=== PATIENT | female | born 1940 | race Caucasian/White ===

== ENCOUNTER → 2016-03-05 | Outpatient (CLI) | payer OTHER ==
[2016-03-05 13:40] LABS: MEAN CORPUSCULAR HEMOGLOBIN 28.5 pg (27.0-33.0); MEAN CORPUSCULAR VOLUME 86.4 fl (80.0-96.0); WHITE BLOOD COUNT 6.1 K/mm3 (4.0-10.0)
[2016-03-05 13:44] LABS: ALBUMIN 3.4 GM/DL (3.2-5.2); ALBUMIN/GLOBULIN RATIO 1.13 (1.00-1.93); ALKALINE PHOSPHATASE 100 U/L (45-117); ALT/SGPT 19 U/L (12-78); ANION GAP 6 MEQ/L (8-16); AST/SGOT 16 U/L (15-37); BILIRUBIN,TOTAL 0.4 MG/DL (0.2-1.0); BLOOD UREA NITROGEN 18 MG/DL (7-18); CALCIUM LEVEL 9.4 MG/DL (8.8-10.2); CARBON DIOXIDE LEVEL 31 MEQ/L (21-32); CHLORIDE LEVEL 101 MEQ/L (98-107); CREATININE FOR GFR 0.82 MG/DL (0.55-1.02); GLOMERULAR FILTRATION RATE > 60.0 (>39); GLUCOSE, FASTING 126 MG/DL (83-110); MAGNESIUM LEVEL 1.5 MG/DL (1.8-2.4); POTASSIUM SERUM 3.6 MEQ/L (3.5-5.1); SODIUM LEVEL 138 MEQ/L (136-145); TOTAL PROTEIN 6.4 GM/DL (6.4-8.2); VITAMIN B12 LEVEL 426 PG/ML
== END ==
LOC: M WUC 10:06
PROVIDERS: ATTEND Nurse Practitioner Family
DX: I10 Essential (primary) hypertension (principal); K21.9 Gastro-esophageal reflux disease without esophagitis; E55.9 Vitamin D deficiency, unspecified

== ENCOUNTER → 2016-06-05 | Outpatient (CLI) | payer OTHER ==
--- NOTE | 2016-06-05 10:39 | REPMRS ---
Patient History The patient states she had a clinical breast exam in 03/10 Patient is postmenopausal. Family history of colorectal cancer in father at age 50 or over. Digital Woman Screen Mammo: June 05, 2016 - Exam #: [id number] Bilateral CC and MLO view(s) were taken. Technologist: Jazmyne Dorsey, Technologist Prior study comparison: November 15, 2014, digital woman screen mammo performed at [facility] to [facility]. September 21, 2011, digital woman screen mammo performed at [facility] to [facility]. FINDINGS: There are scattered fibroglandular densities. There has been no change in the appearance of the mammogram from the prior studies. There is a mild amount of residual fibroglandular tissue which is fairly symmetric. There is no interval development of dominant mass, architectural distortion, or clustered microcalcification suggestive of malignancy. ASSESSMENT: BI-RADS/ACR category 1 mammogram. Negative. Recommendation Routine screening mammogram in 1 year (for women over age 40). This mammogram was interpreted with the aid of an FDA-approved computer-aided dectection system. Electronically Signed By: Nahum Wilkinson MD 06/05/16 1846
== END ==
LOC: M WHC 08:57
PROVIDERS: ATTEND Nurse Practitioner Family
DX: Z12.31 Encounter for screening mammogram for malignant neoplasm of breast (principal)

== ENCOUNTER → 2016-09-04 | Outpatient (CLI) | payer OTHER ==
[2016-09-04 09:55] LABS: ALBUMIN 3.3 GM/DL (3.2-5.2); ALKALINE PHOSPHATASE 89 U/L (45-117); ALT/SGPT 21 U/L (12-78); ANION GAP 8 MEQ/L (8-16); AST/SGOT 20 U/L (15-37); BILIRUBIN,TOTAL 0.4 MG/DL (0.2-1.0); BLOOD UREA NITROGEN 17 MG/DL (7-18); CALCIUM LEVEL 9.2 MG/DL (8.8-10.2); CARBON DIOXIDE LEVEL 29 MEQ/L (21-32); CHLORIDE LEVEL 100 MEQ/L (98-107); CHOLESTEROL LEVEL 173 MG/DL (<200); CREATININE FOR GFR 0.81 MG/DL (0.55-1.02); GLOMERULAR FILTRATION RATE > 60.0 (>39); GLUCOSE, FASTING 106 MG/DL (83-110); MAGNESIUM LEVEL 1.7 MG/DL (1.8-2.4); POTASSIUM SERUM 3.8 MEQ/L (3.5-5.1); SODIUM LEVEL 137 MEQ/L (136-145); TOTAL PROTEIN 6.6 GM/DL (6.4-8.2); TRIGLYCERIDES LEVEL 156 MG/DL (<150)
== END ==
LOC: M WUC 08:14
PROVIDERS: ATTEND Nurse Practitioner Family
DX: I10 Essential (primary) hypertension (principal); E83.42 Hypomagnesemia

== ENCOUNTER → 2017-03-16 | Outpatient (CLI) | payer OTHER | LOC: M SMT 11:47 | DX: R05 Cough (principal); J84.9 Interstitial pulmonary disease, unspecified; I51.7 Cardiomegaly; E55.9 Vitamin D deficiency, unspecified | CPT/HCPCS: 71046; 82746 ==

== ENCOUNTER → 2017-03-16 | Outpatient (REF) | payer OTHER ==
[2017-03-16 14:19] LABS: BASO % 0.3 % (0.0-1.0); EOS # 0.4 10^3/uL (0.0-0.50); EOS % 5.1 % (0.0-3.0); HEMATOCRIT 42.9 % (36.0-47.0); HEMOGLOBIN 13.9 g/dl (12.0-16.0); IMMATURE GRANULOCYTE % 0.3 % (0-0); LYMPH # 1.1 10^3/uL (1.5-4.5); LYMPH % 14.4 % (24.0-44.0); MEAN CORPUSCULAR HEMOGLOBIN 28.1 pg (27.0-33.0); MEAN CORPUSCULAR HGB CONC 32.4 g/dl (32.0-36.5); MEAN CORPUSCULAR VOLUME 86.8 fl (80.0-96.0); MONO # 0.5 10^3/uL (0.0-0.8); MONO % 6.6 % (0.0-5.0); NEUTROPHILS # 5.8 10^3/uL (1.8-7.7); NEUTROPHILS % 73.3 % (36.0-66.0); PLATELET COUNT, AUTOMATED 188 10^3/uL (150-450); RED BLOOD COUNT 4.94 10^6/uL (4.00-5.40); RED CELL DISTRIBUTION WIDTH 14.3 % (11.5-14.5); WHITE BLOOD COUNT 7.9 10^3/uL (4.0-10.0)
[2017-03-16 14:27] LABS: ANION GAP 7 MEQ/L (8-16); BLOOD UREA NITROGEN 15 MG/DL (7-18); CALCIUM LEVEL 9.4 MG/DL (8.8-10.2); CARBON DIOXIDE LEVEL 30 MEQ/L (21-32); CHLORIDE LEVEL 100 MEQ/L (98-107); CREATININE FOR GFR 0.78 MG/DL (0.55-1.02); GLOMERULAR FILTRATION RATE > 60.0 (>39); GLUCOSE, FASTING 89 MG/DL (70-100); MAGNESIUM LEVEL 1.5 MG/DL (1.8-2.4); POTASSIUM SERUM 4.6 MEQ/L (3.5-5.1); SODIUM LEVEL 137 MEQ/L (136-145)
[2017-03-16 14:33] LABS: TOTAL 25(OH) VITAMIN D 58.8 NG/ML (30.0-100.0)
[2017-03-16 14:34] LABS: FOLATE > 24.0 NG/ML; VITAMIN B12 LEVEL 1229 PG/ML
== END ==
LOC: M SFHCPLAZ 11:12
DX: J01.01 Acute recurrent maxillary sinusitis (principal); I10 Essential (primary) hypertension; E55.9 Vitamin D deficiency, unspecified; E53.8 Deficiency of other specified B group vitamins
CPT/HCPCS: 82746

== ENCOUNTER → 2017-06-07 | Outpatient (CLI) | payer OTHER ==
[2017-06-07 17:57] LABS: BASO % 0.4 % (0.0-1.0); EOS # 0.4 10^3/uL (0.0-0.50); EOS % 5.2 % (0.0-3.0); HEMATOCRIT 44.4 % (36.0-47.0); HEMOGLOBIN 14.3 g/dl (12.0-15.5); IMMATURE GRANULOCYTE % 0.4 % (0-3.0); LYMPH # 0.9 10^3/uL (1.5-4.5); LYMPH % 11.3 % (24.0-44.0); MEAN CORPUSCULAR HEMOGLOBIN 28.6 pg (27.0-33.0); MEAN CORPUSCULAR HGB CONC 32.2 g/dl (32.0-36.5); MEAN CORPUSCULAR VOLUME 88.8 fl (80.0-96.0); MONO # 0.5 10^3/uL (0.0-0.8); NEUTROPHILS # 6.4 10^3/uL (1.8-7.7); NEUTROPHILS % 76.7 % (36.0-66.0); PLATELET COUNT, AUTOMATED 241 10^3/uL (150-450); RED CELL DISTRIBUTION WIDTH 14.3 % (11.5-14.5); WHITE BLOOD COUNT 8.3 10^3/uL (4.0-10.0)
[2017-06-07 18:25] LABS: ALBUMIN 3.5 GM/DL (3.2-5.2); ALBUMIN/GLOBULIN RATIO 0.81 (1.00-1.93); ALKALINE PHOSPHATASE 82 U/L (45-117); ALT/SGPT 18 U/L (12-78); AST/SGOT 27 U/L (7-37); BILIRUBIN,DIRECT 0.1 MG/DL (0.0-0.2); BILIRUBIN,TOTAL 0.4 MG/DL (0.2-1.0); CALCIUM LEVEL 9.8 MG/DL (8.8-10.2); GLOMERULAR FILTRATION RATE > 60.0 (>39); TOTAL 25(OH) VITAMIN D 59.8 NG/ML (30.0-100.0); TOTAL PROTEIN 7.8 GM/DL (6.4-8.2)
[2017-06-07 18:31] LABS: ERYTHROCYTE SEDIMENTATION RATE 26 mm/hr (0-30)
== END ==
LOC: M SMT 10:53
DX: J84.10 Pulmonary fibrosis, unspecified (principal)
CPT/HCPCS: 82310

== ENCOUNTER → 2017-09-07 | Outpatient (CLI) | payer OTHER ==
[2017-09-07 13:19] LABS: HEMATOCRIT 37.6 % (36.0-47.0); HEMOGLOBIN 12.3 g/dl (12.0-15.5); MEAN CORPUSCULAR HEMOGLOBIN 29.5 pg (27.0-33.0); MEAN CORPUSCULAR HGB CONC 32.7 g/dl (32.0-36.5); MEAN CORPUSCULAR VOLUME 90.2 fl (80.0-96.0); PLATELET COUNT, AUTOMATED 190 10^3/uL (150-450); RED BLOOD COUNT 4.17 10^6/uL (4.00-5.40); WHITE BLOOD COUNT 7.9 10^3/uL (4.0-10.0)
[2017-09-07 13:36] LABS: ALBUMIN 2.9 GM/DL (3.2-5.2); ALBUMIN/GLOBULIN RATIO 0.78 (1.00-1.93); ALKALINE PHOSPHATASE 63 U/L (45-117); ALT/SGPT 22 U/L (12-78); ANION GAP 6 MEQ/L (8-16); AST/SGOT 21 U/L (7-37); BILIRUBIN,TOTAL 0.4 MG/DL (0.2-1.0); BLOOD UREA NITROGEN 17 MG/DL (7-18); CALCIUM LEVEL 9.3 MG/DL (8.8-10.2); CARBON DIOXIDE LEVEL 35 MEQ/L (21-32); CHLORIDE LEVEL 99 MEQ/L (98-107); CHOLESTEROL LEVEL 155 MG/DL (<200); CHOLESTEROL RISK RATIO 3.297 (<5); CREATININE FOR GFR 0.67 MG/DL (0.55-1.30); GLOMERULAR FILTRATION RATE > 60.0 (>39); GLUCOSE, FASTING 100 MG/DL (70-100); HDL CHOLESTEROL 47 MG/DL (>40); LDL CHOLESTEROL 79.2 MG/DL (<100); MAGNESIUM LEVEL 1.6 MG/DL (1.8-2.4); NON-HDL-C 108 MG/DL; POTASSIUM SERUM 3.9 MEQ/L (3.5-5.1); SODIUM LEVEL 140 MEQ/L (136-145); TOTAL PROTEIN 6.6 GM/DL (6.4-8.2); TRIGLYCERIDES LEVEL 144 MG/DL (<150)
[2017-09-07 13:57] LABS: FOLATE 20.6 NG/ML; TOTAL 25(OH) VITAMIN D 50.9 NG/ML (30.0-100.0); VITAMIN B12 LEVEL 1354 PG/ML
== END ==
LOC: M WUC 09:31
DX: J84.10 Pulmonary fibrosis, unspecified (principal); I10 Essential (primary) hypertension; E83.42 Hypomagnesemia; E55.9 Vitamin D deficiency, unspecified; E53.8 Deficiency of other specified B group vitamins
CPT/HCPCS: 82746

== ENCOUNTER → 2017-09-14 | Outpatient (REF) | payer OTHER | LOC: M SFHCPLAZ 17:00 | DX: R35.0 Frequency of micturition (principal) | CPT/HCPCS: 87086 ==

== ENCOUNTER → 2017-10-08 | Outpatient (REF) | payer OTHER ==
[2017-10-08 14:13] LABS: BASO % 0.2 % (0.0-1.0); EOS # 0.1 10^3/uL (0.0-0.50); EOS % 0.6 % (0.0-3.0); HEMATOCRIT 38.2 % (36.0-47.0); HEMOGLOBIN 12.9 g/dl (12.0-15.5); IMMATURE GRANULOCYTE % 0.6 % (0-3.0); LYMPH # 0.7 10^3/uL (1.5-4.5); MEAN CORPUSCULAR HEMOGLOBIN 29.9 pg (27.0-33.0); MEAN CORPUSCULAR HGB CONC 33.8 g/dl (32.0-36.5); MEAN CORPUSCULAR VOLUME 88.6 fl (80.0-96.0); MONO # 0.3 10^3/uL (0.0-0.8); MONO % 2.8 % (0.0-5.0); NEUTROPHILS # 10.4 10^3/uL (1.8-7.7); NEUTROPHILS % 89.8 % (36.0-66.0); PLATELET COUNT, AUTOMATED 203 10^3/uL (150-450); RED BLOOD COUNT 4.31 10^6/uL (4.00-5.40); RED CELL DISTRIBUTION WIDTH 13.6 % (11.5-14.5); WHITE BLOOD COUNT 11.6 10^3/uL (4.0-10.0)
[2017-10-08 14:19] LABS: ANION GAP 6 MEQ/L (8-16); BLOOD UREA NITROGEN 17 MG/DL (7-18); CARBON DIOXIDE LEVEL 32 MEQ/L (21-32); CHLORIDE LEVEL 96 MEQ/L (98-107); CREATININE FOR GFR 0.97 MG/DL (0.55-1.30); GLOMERULAR FILTRATION RATE 59.4 (>39); GLUCOSE, FASTING 113 MG/DL (70-100); POTASSIUM SERUM 4.4 MEQ/L (3.5-5.1); SODIUM LEVEL 134 MEQ/L (136-145)
== END ==
LOC: M SFHCPLAZ 12:03
DX: R19.7 Diarrhea, unspecified (principal); K62.5 Hemorrhage of anus and rectum
CPT/HCPCS: 80048

== ENCOUNTER → 2018-01-26 | Outpatient (REF) | payer OTHER ==
[2018-01-26 12:38] LABS: HEMOGLOBIN 12.9 g/dl (12.0-15.5); MEAN CORPUSCULAR HGB CONC 33.1 g/dl (32.0-36.5); MEAN CORPUSCULAR VOLUME 87.6 fl (80.0-96.0); PLATELET COUNT, AUTOMATED 212 10^3/uL (150-450); RED BLOOD COUNT 4.45 10^6/uL (4.00-5.40); RED CELL DISTRIBUTION WIDTH 14.3 % (11.5-14.5); WHITE BLOOD COUNT 11.8 10^3/uL (4.0-10.0)
[2018-01-26 13:07] LABS: ESTIMATED AVERAGE GLUCOSE 123 MG/DL (60-110); HEMOGLOBIN A1c 5.9 %
[2018-01-26 13:09] LABS: ALBUMIN 2.8 GM/DL (3.2-5.2); ALKALINE PHOSPHATASE 65 U/L (45-117); ALT/SGPT 41 U/L (12-78); ANION GAP 7 MEQ/L (8-16); AST/SGOT 25 U/L (7-37); BILIRUBIN,TOTAL 0.4 MG/DL (0.2-1.0); BLOOD UREA NITROGEN 18 MG/DL (7-18); CALCIUM LEVEL 9.7 MG/DL (8.8-10.2); CARBON DIOXIDE LEVEL 35 MEQ/L (21-32); CHLORIDE LEVEL 97 MEQ/L (98-107); FREE T4 1.08 NG/DL (0.76-1.46); GLOMERULAR FILTRATION RATE > 60.0 (>39); GLUCOSE, FASTING 143 MG/DL (70-100); POTASSIUM SERUM 3.5 MEQ/L (3.5-5.1); SODIUM LEVEL 139 MEQ/L (136-145); TOTAL 25(OH) VITAMIN D 68.5 NG/ML (30.0-100.0); TOTAL PROTEIN 6.3 GM/DL (6.4-8.2)
== END ==
LOC: M SFHCPLAZ 11:47
DX: R53.83 Other fatigue (principal); I10 Essential (primary) hypertension; R35.0 Frequency of micturition; E55.9 Vitamin D deficiency, unspecified; R63.4 Abnormal weight loss
CPT/HCPCS: 84443

== ENCOUNTER 2018-02-03 10:54 | Day surgery (SDC) | payer OTHER ==
[~2018-02-03] VITALS: Ht 157.5 cm; Wt 46.7 kg
[~2018-02-03 10:54] MED LIST: ALBU83IN; AMLO5TAB4 PO; ANTA550C PO; ASPI1TAB PO; AZEL1SPR3; CALC1TAB26 PO; CLON0.2T PO; COZA100T2 PO; INDA25TAB PO; MAGN64TASA PO; META0.52 PO; METO100T5; MULT1TAB10 PO; NS 1,000 ML IV ONE; OMEP20CA3 PO; POTA1TAB14 PO; PRED5TA PO; SPIR-10 PO; SUCR1SUS PO; VITA100067 PO; VITA100072 PO
[2018-02-03] MEDS ORDERED: ALBUTEROL SULFATE 2.5 MG/0.5 ML INH NEB SOLN As Ordered ONE (11:32)
[2018-02-03] MEDS ORDERED: ALBUTEROL SULFATE 2.5 MG/0.5 ML INH NEB SOLN INH ONE (11:45)
--- NOTE | 2018-02-03 12:16 | ROOR ---
Patient Name: Amy Brown Procedure Date: 02/03/2018 12:02 PM Date of : 1940 Age: 77 Room: [facility] Gender: Female Note Status: Finalized Procedure: Upper GI endoscopy Indications: Weight loss Providers: Edgard RUBALCAVA MD Referring MD: Tawana Sanchez NP Requesting Provider: Medicines: Monitored Anesthesia Care Complications: No immediate complications. Procedure: Pre-Anesthesia Assessment: - The heart rate, respiratory rate, oxygen saturations, blood pressure, adequacy of pulmonary ventilation, and response to care were monitored throughout the procedure. The Endoscope was introduced through the mouth, and advanced to the second part of duodenum. The upper GI endoscopy was accomplished without difficulty. The patient tolerated the procedure well. Findings: The Z-line was variable and was found 30 cm from the incisors. The examined esophagus was normal. A medium-sized hiatal hernia was present. The entire examined stomach was normal. The examined duodenum was normal. Impression: - Normal esophagus. Z-line variable, 30 cm from the incisors. - Normal stomach with medium-sized hiatal hernia. - Normal examined duodenum. - No specimens collected. Recommendation: - Observe patient's clinical course. - Continue present medications. - Perform a colonoscopy today. Edgard Rubalcava MD Edgard RUBALCAVA MD 02/03/2018 12:15:43 PM This report has been signed electronically. Number of Addenda: 0 Note Initiated On: 02/03/2018 12:02 PM Estimated Blood Loss: Estimated blood loss: none.
--- NOTE | 2018-02-03 12:30 | ROOR ---
Patient Name: Amy Brown Procedure Date: 02/03/2018 12:03 PM Date of : 1940 Age: 77 Room: [facility] Gender: Female Note Status: Finalized Procedure: Colonoscopy Indications: Change in bowel habits, Weight loss Providers: Edgard RUBALCAVA MD Referring MD: Tawana Sanchez NP Requesting Provider: Medicines: Monitored Anesthesia Care Complications: No immediate complications. Procedure: Pre-Anesthesia Assessment: - The heart rate, respiratory rate, oxygen saturations, blood pressure, adequacy of pulmonary ventilation, and response to care were monitored throughout the procedure. The Colonoscope was introduced through the anus and advanced to the terminal ileum, with identification of the appendiceal orifice and IC valve. The colonoscopy was performed without difficulty. The patient tolerated the procedure well. The quality of the bowel preparation was good. Findings: The perianal and digital rectal examinations were normal. The terminal ileum appeared normal. Mild to moderate sigmoid diverticulosis and small internal hemorrhoids. The entire examined colon appeared normal on direct and retroflexion views. Retroflexion in the right colon was performed. Impression: - Mild sigmoid diverticulosis and small internal hemorrhoids. - The entire colon is otherwise normal on direct and retroflexion views. - The examined portion of the ileum was normal. - No specimens collected. Recommendation: - Continue present medications. - Use fiber, for example Citrucel, Fibercon, Konsyl or Metamucil. Edgard Rubalcava MD Edgard RUBALCAVA MD 02/03/2018 12:30:38 PM This report has been signed electronically. Number of Addenda: 0 Note Initiated On: 02/03/2018 12:03 PM Estimated Blood Loss: Estimated blood loss: none.
[2018-02-03 13:05] VITALS: BP 131/52
== END 2018-02-03 13:09 | disposition home or self-care (01) ==
LOC: M OPP 10:54
PROVIDERS: ATTEND Internal Medicine Gastroenterology
DX: R19.4 Change in bowel habit (principal); R63.4 Abnormal weight loss; K57.30 Diverticulosis of large intestine without perforation or abscess without bleeding; K64.8 Other hemorrhoids; K22.8 Other specified diseases of esophagus; K44.9 Diaphragmatic hernia without obstruction or gangrene

== ENCOUNTER → 2018-05-19 | Outpatient (CLI) | payer MEDICARE ==
[~2018-05-19] MED LIST changes: -AMLO5TAB4 PO; +AMLO5TAB6 PO; -NS 1,000 ML IV ONE
--- NOTE | 2018-05-19 15:10 | REP ---
Clinical: Bilateral lower extremity edema . Technique: Wilkinson scale and color Doppler evaluation using linear high frequency transducer. Findings: Ultrasound examination of the right and left lower extremity deep venous structures from the common femoral vein to the popliteal vein demonstrates normal compressibility flow and wave patterns in response to respiration and augmentation. There is no evidence for deep venous thrombosis. Impression: No evidence for deep venous thrombosis. Electronically Signed by Angus Ga MD 05/19/2018 03:02 P
== END ==
LOC: M RAD 14:32
PROVIDERS: ATTEND Nurse Practitioner Family
DX: R60.0 Localized edema (principal)

== ENCOUNTER 2018-08-20 08:27 | Inpatient (IN) | payer MEDICARE ==
[~2018-08-20] VITALS: Ht 157.5 cm; Wt 47.0 kg
[~2018-08-20 08:27] MED LIST changes: -ALBU83IN; +ALBU83IN INH; -ASPI1TAB PO; +ASPI81TA26 PO; -METO100T5; +METO100T5 PO; +VITA100018 PO; -VITA100072 PO
[2018-08-20 09:22] LABS: BASO % 0.2 % (0.0-1.0); EOS # 0.2 10^3/uL (0.0-0.50); EOS % 2.1 % (0.0-3.0); HEMATOCRIT 40.6 % (36.0-47.0); HEMOGLOBIN 13.1 g/dl (12.0-15.5); LYMPH # 1.7 10^3/uL (1.5-4.5); LYMPH % 17.2 % (24.0-44.0); MEAN CORPUSCULAR HEMOGLOBIN 29.9 pg (27.0-33.0); MEAN CORPUSCULAR HGB CONC 32.3 g/dl (32.0-36.5); MEAN CORPUSCULAR VOLUME 92.7 fl (80.0-96.0); MONO # 0.7 10^3/uL (0.0-0.8); MONO % 7.1 % (0.0-5.0); NEUTROPHILS # 7.2 10^3/uL (1.8-7.7); NEUTROPHILS % 73.1 % (36.0-66.0); PLATELET COUNT, AUTOMATED 199 10^3/uL (150-450); RED BLOOD COUNT 4.38 10^6/uL (4.00-5.40); WHITE BLOOD COUNT 9.9 10^3/uL (4.0-10.0)
[2018-08-20 09:33] LABS: INR 0.92; PROTHROMBIN TIME 12.1 SECONDS (11.8-14.0)
[2018-08-20 09:55] LABS: BLOOD UREA NITROGEN 15 MG/DL (7-18); CALCIUM LEVEL 9.3 MG/DL (8.8-10.2); CARBON DIOXIDE LEVEL 39 MEQ/L (21-32); CHLORIDE LEVEL 91 MEQ/L (98-107); CREATININE FOR GFR 0.41 MG/DL (0.55-1.30); GLOMERULAR FILTRATION RATE > 60.0 (>39); GLUCOSE, FASTING 121 MG/DL (70-100); POTASSIUM SERUM 3.4 MEQ/L (3.5-5.1); SODIUM LEVEL 137 MEQ/L (136-145)
[2018-08-20 10:00] LABS: ALT/SGPT 14 U/L (12-78); BILIRUBIN,DIRECT < 0.1 MG/DL (0.0-0.2); BILIRUBIN,TOTAL 0.4 MG/DL (0.2-1.0); CK-MB VALUE MASS 1.4 NG/ML (<3.6); CPK CREATINE PHOSPHOKINASE 17 U/L (26-192); MB/CK RELATIVE INDEX 8.24 (< OR =4); NT-PRO BNP 285 PG/ML (<450); TOTAL PROTEIN 7.2 GM/DL (6.4-8.2); TROPONIN I 0.02 NG/ML (< 0.10)
[2018-08-20] MEDS ORDERED: ISOVUE-370 76% 100ML VIAL (Q9967) As Ordered ONE (10:36)
--- NOTE | 2018-08-20 11:24 | ECGEPIP ---
[facility] - ED Test Date: 2018-08-20 Pat Name: CHRISSY BUCKNER Department: Room: - Gender: Female [employer] Administrator: : 1940 Requested By: Cornelia Agudelo Order Number: [id number] Reading MD: Cornelia Agudelo Measurements Intervals [place] Rate: 103 P: 51 MS: 122 QRS: QRSD: 98 T: 26 QT: 311 QTc: 408 Interpretive Statements SINUS TACHYCARDIA WITH OCCASIONAL SUPRAVENTRICULAR PREMATURE COMPLEXES MODERATE ST DEPRESSION No prior Electronically Signed on 08-20-2018 11:23:59 EDT by Cornelia Agudelo
[2018-08-20 11:37] VITALS: O2SAT 89
[2018-08-20] MEDS ORDERED: POTASSIUM CHLORIDE 10 MEQ SR TABLET PO ONE (12:00)
[2018-08-20] MEDS ORDERED: VITAD1000T PO (12:51)
[2018-08-20] MEDS ORDERED: MAGN64TASA PO ×2 (12:51)
[2018-08-20] MEDS ORDERED: VENTAER INH (12:51)
[2018-08-20] MEDS ORDERED: SUCR1TAB56 PO (12:51)
[2018-08-20] MEDS ORDERED: MOME50SP (12:51)
[2018-08-20] MEDS ORDERED: VITMTA PO (12:51)
[2018-08-20] MEDS ORDERED: ALBUTEROL 90 MCG/ACT 8GM HFA INHALER INH PRN (13:00)
[2018-08-20] MEDS ORDERED: FLUTICASONE PROP 0.05% NASAL SPRAY 16 GM (FLONASE) PRN (13:00)
[2018-08-20] MEDS ORDERED: FUROSEMIDE 20 MG/2 ML VIAL (J1940) IV ONE (13:00)
[2018-08-20] MEDS ORDERED: LEVALBUTEROL 1.25 MG/0.5 ML CONCENTRATE NEB INH PRN (13:15)
[2018-08-20] MEDS ORDERED: POTASSIUM CHLORIDE 10% LIQ 20 MEQ/15 ML UDC PO ONE (13:15)
[2018-08-20] MEDS ORDERED: METOPROLOL TART 25 MG TABLET PO ONE (13:15)
[2018-08-20 13:35] VITALS: BP 120/58
[2018-08-20] MEDS: SPIRONOLACTONE 12.5MG PER 1/2 TABLET PO SCH (14:24)
[2018-08-20] MEDS: CYANOCOBALAMIN 500 MCG TAB PO SCH (14:24)
[2018-08-20] MEDS: LOSARTAN 50 MG TAB PO SCH (14:24)
[2018-08-20] MEDS: predniSONE 20 MG TAB PO SCH (14:24)
[2018-08-20] MEDS: METOPROLOL TARTRATE 100 MG TAB PO SCH ×2 (14:25→21:11)
[2018-08-20] MEDS: ASPIRIN 81 MG ENTERIC TAB PO SCH (14:25)
[2018-08-20] MEDS ORDERED: SLF 3 ML SYR IV PRN (14:30)
--- NOTE | 2018-08-20 15:02 | REP ---
Clinical: Shortness of breath. Technique: Axial contrast enhanced images from the thoracic inlet to the upper abdomen using pulmonary embolus technique with 100 ml Isovue 370 intravenous contrast material. Multiplanar re-formations obtained. Comparison: 05/26/2017. Findings: Satisfactory enhancement of the pulmonary vasculature is achieved and no filling defects are identified to suggest pulmonary embolus. Diffuse advanced pulmonary fibrosis with scattered scarring and interstitial changes as well as scattered ground-glass mosaic pattern suggesting elements of air trapping is essentially unchanged compared to prior examination. No acute focal consolidation. No effusion. No pneumothorax. Mediastinal and hilar adenopathy remains stable/chronic. Atherosclerotic changes to the thoracic aorta and coronary arteries noted without aortic aneurysm or dissection. No cardiomegaly or pericardial effusion. Surrounding musculoskeletal structures demonstrate age-related degenerative changes. Limited upper abdomen demonstrates normal bilateral adrenal glands. Impression: 1. No evidence for pulmonary embolus. Thoracic aorta without aneurysm or dissection. 2. Advanced diffuse fibrosis and chronic changes similar to 05/26/2017. No consolidation or effusion appreciated. Electronically Signed by Angus Ga MD 08/20/2018 11:04 A
--- NOTE | 2018-08-20 15:02 | REP ---
Clinical: Cough and dyspnea. Comparison: 03/16/2017. Findings: Mediastinum and cardiac silhouette are within normal limits. Lung londono demonstrate diffuse chronic fibrosis. Subtle superimposed right basilar atelectasis/infiltrate and trace pleural reaction cannot be excluded. No pneumothorax. Skeletal structures stable. Impression: Diffuse fibrosis. Subtle superimposed right basilar infiltrate/atelectasis is suggested. Electronically Signed by Angus Ga MD 08/20/2018 09:21 A
--- NOTE | 2018-08-20 15:03 | HPE ---
DATE OF ADMISSION: 08/20/2018 CHIEF COMPLAINT: Shortness of breath. HISTORY OF PRESENT ILLNESS: This is a 78-year-old female, past medical history significant for chronic pulmonary fibrosis, hypertension, thrombocytopenia, hiatal hernia, reflux, hyperlipidemia, carotid artery stenosis, more than 90% on the right, status post carotid endarterectomy in 2011, allergic rhinitis, prediabetic, ejection fraction 60%, osteopenia, ex-smoker, diverticulitis, lumbar degenerative joint disease, vitamin B12 deficiency chronically on home oxygen at 3 liters and steroid dependent at 7.5 mg of prednisone daily presents to the emergency room with 2 day history of worsening shortness of breath, which she feels was exacerbated by pulmonary rehabilitation that she has had this past week. Patient has been in her usual state of health and usually on 3 liters of oxygen. This past week physical therapy had seen her at home three times this week. Asked her to do exercises including lifting her legs while she is in her chair and standing at her kitchen counter sink, but with increasing shortness of breath. According to the patient, often times hot weather also bothers her. She has not used any of her nebulizer inhalers more than prescribed. Had taken no other medications. She denies any fever or cough and states that she usually can ambulate at home about 10 to 15 feet without much difficulty. In the ER, she was found to desaturate to 80% on 3 liters of oxygen with ambulation. She was placed on 6 liters and still has saturations of 80%. CT chest was performed and according to Dr. Amaya, did not show any pulmonary embolism. There is chronic fibrosis as on previous CTs. The patient has advanced pulmonary fibrosis with reticulonodular and ground-glass opacity, bilateral hilar mediastinal lymphadenopathy as well. She is usually followed by Dr. Arthur Maynard, grade school teacher and had recently seen her about 4 to 5 months ago and was told that there would be no changes in any of her medications. Patient otherwise denies any chest pain, pressure, tightness, palpitations, lightheadedness or near-syncopal episode at home. She has not traveled outside the city and has not had any other sicks contacts. She otherwise denies any headache, changes in vision, rhinorrhea, sore throat, nausea, vomiting, abdominal pain, diarrhea or constipation. She has chronic oxygen use at 3 liters usually, now with dyspnea on exertion. No paroxysmal nocturnal dyspnea (PND), orthopnea. Patient has not had any weight gain, weight loss. No changes in appetite. No upper or lower extremity joint or muscle pain. Patient has had increasing weakness the past few days due to shortness of breath. Hospitalist was called to admit for progressive chronic fibrosis to rule out cor pulmonale or right-sided heart failure as well as to treat for possible pulmonary fibrosis exacerbation. Per Dr. Sagastume, grade school teacher show operations supervisor, patient may benefit from low dose trial of Lasix as well as prednisone 40 mg, not for COPD exacerbation, but for pulmonary fibrosis exacerbation. Patient will be admitted as an inpatient for two midnights. PAST MEDICAL HISTORY: Chronic hypoxic respiratory failure on 3 liters of oxygen. Advanced pulmonary fibrosis. Follows with Dr. Arthur Maynard, grade school teacher as outpatient. 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 Hypertension. Gastroesophageal reflux disease. Carotid artery stenosis, status post right carotid endarterectomy. Hypertension. Negative stress test on 06/2011. Thrombocytopenia. Hiatal hernia. Upper GI 08/[address] Rubalcava. Hyperlipidemia. Allergic rhinitis. Impaired fasting glucose, pre-diabetic. Echo 03/2007, ejection fraction (EF) of 60%. Normal left ventricular systolic function. Mild aortic valve sclerosis. Osteopenia. Ex-tobacco use. Quit 25 years ago. Diverticulosis per colonoscopy. Lumbar degenerative disc disease. Borderline vitamin B12 deficient. ALLERGIES: ACTONEL causing GI upset. DYNACIRC causing edema. LOZOL incontinence. ANGIOTENSIN-CONVERTING ENZYME (SUNITA) INHIBITOR causing cough. HIGH DOSE ASPIRIN causing petechiae. HYDROCHLOROTHIAZIDE causing pancytopenia. PAST SURGICAL HISTORY: Dilation and curettage (D and C) 1983. Colonoscopy normal 2002. Right carotid endarterectomy for more than 90%, asymptomatic stenosis June 2011. Esophagogastroduodenoscopy (EGD) normal 02/03/2018. HOME MEDICATIONS: Please see below. FAMILY HISTORY: Father colon cancer. Mother decreased GI bleed. Paternal aunt with hypertension. Daughter with diabetes. SOCIAL HISTORY: Patient smoked a pack a day for several years, quit 25 years ago. Denies any drug use or alcohol use. Patient is retired and lives alone in a one story home. 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 Walks with a walker, usually. Healthcare proxy is Cherie Ferrer. Patient is DO NOT RESUSCITATE. REVIEW OF SYSTEMS: Per HPI, 12-point system otherwise negative. PHYSICAL EXAMINATION: Temperature 98, pulse 91, respiratory rate 24, blood pressure 135/58, 93% on 3 liters nasal cannula. GENERAL: Patient is awake, alert, oriented to person and place. Able to provide much of the history. She does have mild use of accessory respiratory muscles with 5 to 7 word conversational dyspnea. Pupils are round and reactive. Dry mucous membranes. Neck is supple. Full range of motion. No jugular venous distention or thyromegaly. LUNGS: Clear to auscultation in the upper lobes. Fine crackles at the bases. HEART: S1, S2. Sinus tachycardia. No murmurs, rubs or gallops. ABDOMEN: Soft, nontender, nondistended. Positive bowel sounds. No hepatosplenomegaly. EXTREMITIES. No cyanosis, clubbing or any pitting edema. EKG: Sinus tachycardia, ventricular rate of 103. LABORATORY DATA: White count 9.9, hemoglobin 13, hematocrit 40, platelet count 199. Sodium 137, potassium 3.4, chloride 91, bicarbonate 39, BUN 15, creatinine 0.41, glucose of 121. Lactic acid is 0.8. Calcium of 9.3. Total bilirubin 0.4, direct bilirubin less than 0.1. ACL 18, ALT 14. Alkaline phosphatase 52. Total CK 17. MB fraction 1.4, troponin 0.02. MB relative index 8.24. BNP of 285. Total protein 7.2, albumin of 3. ASSESSMENT: 78-year-old female with worsening respiratory distress found to be hypoxic on 3 liters. IMPRESSION: 1. Acute on chronic hypoxic respiratory failure, chronically on 3 liters of home oxygen at home. Currently hypoxic with saturations of 80 to 89% on [address] chest shows no pulmonary embolism, pneumonia or pulmonary edema. She currently has end-stage pulmonary fibrosis with possible exacerbation secondary to changes in temperature as well as recent exertional dyspnea. At this time, patient will be given a trial of Lasix, but will monitor patient's creatinine as well as prednisone 40 mg according to recommendations from Dr. Sagastume, grade school teacher show operations supervisor. Patient follows with Dr. Maynard usually as outpatient. She does have a DO NOT RESUSCITATE, DO NOT INTUBATE status. Her prognosis remains guarded in light of progressive disease from the pulmonary fibrosis and worsening hypoxia. Cardiac markers will be cycled every 6 hourly. She will be admitted to telemetry to allow right-sided congestive heart failure arrhythmias as well as acute coronary syndrome as potential cause for patient's worsening shortness of breath. 2. Pulmonary fibrosis, end-stage. Patient has been followed by Dr. Arthur Maynard as outpatient. No pulmonary embolism (PE) was seen on CT of the chest. Will provide supportive care with nebulizer treatments. Since she is tachycardic, will change from albuterol to Xopenex. She will be continued on her prednisone but will be increased to 40 mg for now until respiratory status improves. Will obtain a respiratory panel and MRSA screen. Will monitor clinically for any signs of cor pulmonale or right-sided heart failure. Trial of Lasix to decrease PA pressures and will obtain 2D echocardiogram to rule out severe pulmonary hypertension. Her prognosis remains very guarded in light of end-stage advanced pulmonary fibrosis. May benefit from palliative care referral. At this time she is DO NOT RESUSCITATE, DO NOT INTUBATE, but is electing for active treatment. 3. History of peripheral arterial disease with carotid end-arterectomy on the right by Dr. Peña in [place]. She currently has no symptoms. Will continue her on her home medications. 4. Hypertension, uncontrolled. Most likely secondary to respiratory distress. Patient's metoprolol will be resumed at 100 mg twice a day. She is continued on clonidine 0.1 at bedtime. 5. Electrolyte abnormalities. She will be resumed on her home dose of magnesium as well as potassium being supplemented. 6. Possible cor pulmonale, right-sided heart failure with previous echo showing preserved ejection fraction, EF of 60% with no significant valvular disease. Due to worsening shortness of breath, will obtain 2D echo and quantify the severity of patient's pulmonary hypertension. 7. Vitamin B12 deficiency. Continue on vitamin B12 supplements 1000 mcg daily. 8. History of gastroesophageal reflux disease (GERD). Continue on Prilosec 20 mg twice a day. 9. Vitamin D deficiency and osteopenia on DEXA scan. Continue on vitamin D 1000 units daily. 10. DVT prophylaxis with Lovenox 30 mg subcutaneous daily. 11. 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 Patient has been referred to pulmonary rehabilitation which we will continue as outpatient. Physical therapy while she is in the hospital. CODE STATUS: Patient states that she is DO NOT RESUSCITATE, DO NOT INTUBATE. She will bring her paperwork from home. DISPOSITION: Patient lives alone. Unsure whether she would like to proceed with living alone versus placement. At this time she would prefer to be discharged home after this hospitalization. TREMAYNE
[2018-08-20] MEDS: INDAPAMIDE 1.25MG TABLET PO SCH (15:10)
[2018-08-20 16:00] VITALS: BP 109/53
[2018-08-20 20:00] VITALS: BP 116/73
[2018-08-20 20:32] LABS: CK-MB VALUE MASS 1.9 NG/ML (<3.6); MB/CK RELATIVE INDEX 9.5 (< OR =4); TROPONIN I 0.03 NG/ML (< 0.10)
[2018-08-20] MEDS: MAGNESIUM CHLORIDE 64 MG TABCR (SLO MAG) PO SCH (21:11)
[2018-08-20] MEDS: OMEPRAZOLE 20 MG CAP PO SCH (21:11)
[2018-08-20] MEDS: cloNIDine 0.1 MG TAB PO SCH (21:11)
[2018-08-20] MEDS: SLF 3 ML SYR IV SCH (21:12)
[2018-08-20 23:57] VITALS: BP 140/64
[2018-08-21 00:30] LABS: CK-MB VALUE MASS 1.8 NG/ML (<3.6); TROPONIN I 0.02 NG/ML (< 0.10)
[2018-08-21 04:00] VITALS: BP 147/65
[2018-08-21 04:50] LABS: HEMATOCRIT 42.1 % (36.0-47.0); MEAN CORPUSCULAR HEMOGLOBIN 29.5 pg (27.0-33.0); MEAN CORPUSCULAR HGB CONC 30.9 g/dl (32.0-36.5); MEAN CORPUSCULAR VOLUME 95.5 fl (80.0-96.0); PLATELET COUNT, AUTOMATED 187 10^3/uL (150-450); RED BLOOD COUNT 4.41 10^6/uL (4.00-5.40); WHITE BLOOD COUNT 6.4 10^3/uL (4.0-10.0)
[2018-08-21 05:09] LABS: BLOOD UREA NITROGEN 26 MG/DL (7-18); CALCIUM LEVEL 9.8 MG/DL (8.8-10.2); CARBON DIOXIDE LEVEL 44 MEQ/L (21-32); CHLORIDE LEVEL 92 MEQ/L (98-107); CREATININE FOR GFR 0.55 MG/DL (0.55-1.30); GLOMERULAR FILTRATION RATE > 60.0 (>39); GLUCOSE, FASTING 113 MG/DL (70-100); POTASSIUM SERUM 3.9 MEQ/L (3.5-5.1); SODIUM LEVEL 138 MEQ/L (136-145)
[2018-08-21] MEDS: SLF 3 ML SYR IV SCH ×3 (05:56→20:05)
[2018-08-21] MEDS ORDERED: IPRATROPIUM 0.02% SOLN 0.5MG/2.5 ML NEB INH PRN (06:30)
[2018-08-21] MEDS ORDERED: LEVALBUTEROL 1.25 MG/0.5 ML CONCENTRATE NEB INH PRN (06:30)
[2018-08-21 08:00] VITALS: BP 149/65
[2018-08-21] MEDS: LEVALBUTEROL 1.25 MG/0.5 ML CONCENTRATE NEB INH SCH ×4 (08:00→20:16)
[2018-08-21] MEDS: IPRATROPIUM 0.02% SOLN 0.5MG/2.5 ML NEB INH SCH ×3 (08:00→20:16)
[2018-08-21] MEDS: LOSARTAN 50 MG TAB PO SCH (08:32)
[2018-08-21] MEDS: OMEPRAZOLE 20 MG CAP PO SCH ×2 (08:33→20:04)
[2018-08-21] MEDS: VITAMIN D 1,000 INTERNATIONAL UNITS TABLET PO SCH (08:33)
[2018-08-21] MEDS: ASPIRIN 81 MG ENTERIC TAB PO SCH (08:33)
[2018-08-21] MEDS: CYANOCOBALAMIN 500 MCG TAB PO SCH (08:33)
[2018-08-21] MEDS: predniSONE 20 MG TAB PO SCH (08:33)
[2018-08-21] MEDS: MAGNESIUM CHLORIDE 64 MG TABCR (SLO MAG) PO SCH ×2 (08:34→20:05)
[2018-08-21] MEDS: SPIRONOLACTONE 12.5MG PER 1/2 TABLET PO SCH (08:34)
[2018-08-21] MEDS: ENOXAPARIN 30 MG/0.3 ML SYR (J1650) SC SCH ×2 (08:34→08:39)
[2018-08-21] MEDS: METOPROLOL TARTRATE 100 MG TAB PO SCH ×2 (08:34→20:04)
[2018-08-21] MEDS: MULTIVITAMINS/MINERALS THERAP 1 TAB PO SCH (08:34)
[2018-08-21] MEDS: POTASSIUM CHLORIDE 10% LIQ 20 MEQ/15 ML UDC PO SCH (08:35)
[2018-08-21] MEDS ORDERED: POTASSIUM CHLORIDE 10 MEQ SR TABLET PO SCH (09:00)
[2018-08-21] MEDS: INDAPAMIDE 1.25MG TABLET PO SCH (10:24)
--- NOTE | 2018-08-21 11:40 | IPNPDOC ---
Date Seen The patient was seen on 08/21/18. Progress Note SUBJECTIVE: Pt still remaines hypoxic with ambulation requiring 5liters of oxygen from baseline 3liters nasal cannula. No c/o cough, fever, chills, PND, orthopnea, or worsening LE edema. Pt denies any palpitations, dizziness, or lightheadedness. no nausea, vomiting, abdominal pain, diaphoresis. despite moderate ST depression onEKG, troponins were unremarkable overnight. No significant urine output after lasix last night. on prednisone 40 mg daily for pulmonary fibrosis exacerbation. OBJECTIVE: PHYSICAL EXAMINATION: VITALS: PLS SEE BELOW GENERAL: Patient is awake, alert, oriented to person and place. Able to provide much of the history. She does have mild use of accessory respiratory muscles with 5 to 7 word conversational dyspnea. Pupils are round and reactive. Dry mucous membranes. Neck is supple. Full range of motion. No jugular venous distention or thyromegaly. LUNGS: Clear to auscultation in the upper lobes. Fine crackles at the bases. HEART: S1, S2. Sinus tachycardia. No murmurs, rubs or gallops. ABDOMEN: Soft, nontender, nondistended. Positive bowel sounds. No hepatosplenomegaly. EXTREMITIES. No cyanosis, clubbing or any pitting edema. LABORATORY DATA, IMAGING STUDIES, MICROBIOLOGY: PLS SEE BELOW EKG: SINUS TACHYCARDIA WITH OCCASIONAL SUPRAVENTRICULAR PREMATURE COMPLEXES MODERATE ST DEPRESSION No prior Electronically Signed on 08-20-2018 11:23:59 EDT by Cornelia Agudelo DD: Cornelia Agudelo MD 08/20/18 0858 DT: WILIAM 08/20/18 1123 DS: NICO 08/20/18 1123 08/20/18 1123 ASSESSMENT: 78-year-old female with worsening respiratory distress found to be hypoxic on 3 liters. IMPRESSION: This is a 78-year-old female, past medical history significant for chronic pulmonary fibrosis, hypertension, thrombocytopenia, hiatal hernia, reflux, hyperlipidemia, carotid artery stenosis, more than 90% on the right, status post carotid endarterectomy in 2011, allergic rhinitis, prediabetic, ejection fraction 60%, osteopenia, ex-smoker, diverticulitis, lumbar degenerative joint disease, vitamin B12 deficiency chronically on home oxygen at 3 liters and steroid dependent at 7.5 mg of prednisone daily presents to the emergency room with 2 day history of worsening shortness of breath, which she feels was exacerbated by pulmonary rehabilitation that she has had this past week. Patient has been in her usual state of health and usually on 3 liters of oxygen. This past week physical therapy had seen her at home three times this week. Asked her to do exercises including lifting her legs while she is in her chair and standing at her kitchen counter sink, but with increasing shortness of breath. According to the patient, often times hot weather also bothers her. She has not used any of her nebulizer inhalers more than prescribed. Had taken no other medications. She denies any fever or cough and states that she usually can ambulate at home about 10 to 15 feet without much difficulty. In the ER, she was found to desaturate to 80% on 3 liters of oxygen with ambulation. She was placed on 6 liters and still has saturations of 80%. CT chest was performed and according to Dr. Amaya, did not show any pulmonary embolism. There is chronic fibrosis as on previous CTs. The patient has advanced pulmonary fibrosis with reticulonodular and ground-glass opacity, bilateral hilar mediastinal lymphadenopathy as well. She is usually followed by Dr. Arthur Maynard, edi coordinator and had recently seen her about 4 to 5 months ago and was told that there would be no changes in any of her medications. Patient otherwise denies any chest pain, pressure, tightness, palpitations, lightheadedness or near-syncopal episode at home. She has not traveled outside the city and has not had any other sicks contacts. She otherwise denies any headache, changes in vision, rhinorrhea, sore throat, nausea, vomiting, abdominal pain, diarrhea or constipation. She has chronic oxygen use at 3 liters usually, now with dyspnea on exertion. No paroxysmal nocturnal dyspnea (PND), orthopnea. Patient has not had any weight gain, weight loss. No changes in appetite. No upper or lower extremity joint or muscle pain. Patient has had increasing weakness the past few days due to shortness of breath. Hospitalist was called to admit for progressive chronic fibrosis to rule out cor pulmonale or right-sided heart failure as well as to treat for possible pulmonary fibrosis exacerbation. Per Dr. Sagastume, edi coordinator [employer] dean, patient may benefit from low dose trial of Lasix as well as prednisone 40 mg, not for COPD exacerbation, but for pulmonary fibrosis exacerbation. Patient will be admitted as an inpatient for two midnights. Acute on chronic hypoxic respiratory failure, chronically on 3 liters of home oxygen at home. Currently hypoxic with saturations of 80 to 89% on [address] chest shows no pulmonary embolism, pneumonia or pulmonary edema. She currently has end-stage pulmonary fibrosis with possible exacerbation secondary to changes in temperature as well as recent exertional dyspnea. At this time, patient will be given a trial of Lasix, but will monitor patient's creatinine as well as prednisone 40 mg according to recommendations from Dr. Sagastume, edi coordinator [employer] dean. Patient follows with Dr. Maynard usually as outpatient. She does have a DO NOT RESUSCITATE, DO NOT INTUBATE status. Her prognosis remains guarded in light of progressive disease from the pulmonary fibrosis and worsening hypoxia. Cardiac markers will be cycled every 6 hourly. She will be admitted to telemetry to allow right-sided congestive heart failure arrhythmias as well as acute coronary syndrome as potential cause for patient's worsening shortness of breath. Pulmonary fibrosis, end-stage. Patient has been followed by Dr. Arthur Maynard as outpatient. No pulmonary embolism (PE) was seen on CT of the chest. Will provide supportive care with nebulizer treatments. Since she is tachycardic, will change from albuterol to Xopenex. She will be continued on her prednisone but will be increased to 40 mg for now until respiratory status improves. Will obtain a respiratory panel and MRSA screen. Will monitor clinically for any signs of cor pulmonale or right-sided heart failure. Trial of Lasix to decrease PA pressures and will obtain 2D echocardiogram to rule out severe pulmonary hypertension. Her prognosis remains very guarded in light of end-stage advanced pulmonary fibrosis. May benefit from palliative care referral. At this time she is DO NOT RESUSCITATE, DO NOT INTUBATE, but is electing for active treatment. History of peripheral arterial disease with carotid end-arterectomy on the right by Dr. Peña in [place]. She currently has no symptoms. Will continue her on her home medications. Hypertension, uncontrolled. Most likely secondary to respiratory distress. Patient's metoprolol will be resumed at 100 mg twice a day. She is continued on clonidine 0.1 at bedtime. Electrolyte abnormalities. She will be resumed on her home dose of magnesium as well as potassium being supplemented. Abnormal EKG: troponins unremarkable. Vitamin B12 deficiency. Continue on vitamin B12 supplements 1000 mcg daily. History of gastroesophageal reflux disease (GERD). Continue on Prilosec 20 mg twice a day. Vitamin D deficiency and osteopenia on DEXA scan. Continue on vitamin D 1000 units daily. DVT prophylaxis with Lovenox 30 mg subcutaneous daily. 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 Patient has been referred to pulmonary rehabilitation which we will continue as outpatient. Physical therapy while she is in the hospital. CODE STATUS: Patient states that she is DO NOT RESUSCITATE, DO NOT INTUBATE. She will bring her paperwork from home. DISPOSITION: Patient lives alone. Unsure whether she would like to proceed with living alone versus placement. At this time she would prefer to be discharged home after this hospitalization. VS, I&O, 24H, Fishbone Vital Signs/I&O Vital Signs Date Time Temp Pulse Resp B/P (MAP) Pulse Ox O2 Delivery O2 Flow Rate FiO2 08/21/18 04:00 96.9 81 18 147/65 (92) 100 5.0 08/20/18 21:25 Nasal Cannula I&O- Last 24 Hours up to 6 AM 08/21/18 06:00 Intake Total 120 ml Output Total 200 ml Balance -80 ml Laboratory Data 24H LABS Laboratory Tests 2 08/20/18 09:05: Immature Granulocyte % (Auto) 0.3, White Blood Count 9.9, Red Blood Count 4.38, Hemoglobin 13.1, Hematocrit 40.6, Mean Corpuscular Volume 92.7, Mean Corpuscular Hemoglobin 29.9, Mean Corpuscular Hemoglobin Concent 32.3, Red Cell Distribution Width 13.9, Platelet Count 199, Neutrophils (%) (Auto) 73.1H, Lymphocytes (%) (Auto) 17.2L, Monocytes (%) (Auto) 7.1H, Eosinophils (%) (Auto) 2.1, Basophils (%) (Auto) 0.2, Neutrophils # (Auto) 7.2, Lymphocytes # (Auto) 1.7, Monocytes # (Auto) 0.7, Eosinophils # (Auto) 0.2, Basophils # (Auto) 0.0, Nucleated Red Blood Cells % (auto) 0.0, Prothrombin Time 12.1, Prothromb Time International Ratio 0.92, Anion Gap 7L, Glomerular Filtration Rate > 60.0, Lactic Acid Level 0.8, Blood Urea Nitrogen 15, Creatinine 0.41L, Sodium Level 137, Potassium Level 3.4L, Chloride Level 91L, Carbon Dioxide Level 39H, Calcium Level 9.3, Aspartate Amino Transf (AST/SGOT) 18, Alanine Aminotransferase (ALT/SGPT) 14, Alkaline Phosphatase 52, Total Bilirubin 0.4, Direct Bilirubin < 0.1, Total Creatine Cristy se 17L, Creatine Kinase MB 1.4, Creatine Kinase MB Relative Index 8.24H, Troponin I 0.02, VM-Ike-Y-Type Natriuretic Peptide 285, Total Protein 7.2, Albumin 3.0L, Albumin/Globulin Ratio 0.71L, Thyroid Stimulating Hormone (TSH) 2.200 08/20/18 19:43: Total Creatine Kinase 20L, Creatine Kinase MB 1.9, Creatine Kinase MB Relative Index 9.50H, Troponin I 0.03# 08/20/18 23:45: Total Creatine Kinase 20L, Creatine Kinase MB 1.8, Creatine Kinase MB Relative Index 9.00H, Troponin I 0.02# 08/21/18 04:24: Nucleated Red Blood Cells % (auto) 0.0, Anion Gap 2L, Glomerular Filtration Rate > 60.0, Blood Urea Nitrogen 26#H, Creatinine 0.55, Sodium Level 138, Potassium Level 3.9, Chloride Level 92L, Carbon Dioxide Level 44H, Calcium Level 9.8 CBC/BMP Laboratory Tests 08/20/18 09:05 Red Blood Count 4.38, Mean Corpuscular Volume 92.7, Mean Corpuscular Hemoglobin 29.9, Mean Corpuscular Hemoglobin Concent 32.3, Red Cell Distribution Width 13.9, Neutrophils (%) (Auto) 73.1 H, Lymphocytes (%) (Auto) 17.2 L, Monocytes (%) (Auto) 7.1 H, Eosinophils (%) (Auto) 2.1, Basophils (%) (Auto) 0.2, Neutrophils # (Auto) 7.2, Lymphocytes # (Auto) 1.7, Monocytes # (Auto) 0.7, Eosinophils # (Auto) 0.2, Basophils # (Auto) 0.0, Calcium Level 9.3 08/21/18 04:24 Red Blood Count 4.41, Mean Corpuscular Volume 95.5, Mean Corpuscular Hemoglobin 29.5, Mean Corpuscular Hemoglobin Concent 30.9 L, Red Cell Distribution Width 14.1, Calcium Level 9.8 Microbiology Microbiology 08/20/18 Blood Culture, Received Pending 08/20/18 Blood Culture, Received Pending MIGNON CERVANTES MD Aug 21, 2018 06:28
[2018-08-21 12:00] VITALS: BP 137/61
[2018-08-21 16:00] VITALS: BP 105/68
[2018-08-21 20:00] VITALS: BP 132/58
[2018-08-21] MEDS: cloNIDine 0.1 MG TAB PO SCH (20:04)
[2018-08-21 23:56] VITALS: BP 111/49
[2018-08-22] MEDS: LEVALBUTEROL 1.25 MG/0.5 ML CONCENTRATE NEB INH SCH ×6 (00:03→20:02)
[2018-08-22 03:57] VITALS: BP 133/63
[2018-08-22] MEDS: SLF 3 ML SYR IV SCH ×2 (06:00→14:00)
--- NOTE | 2018-08-22 06:24 | ECHO ---
DATE OF PROCEDURE: 08/21/2018 DATE OF : 1940 AGE: 78 REFERRING PHYSICIAN: Dr. Angelic Baldwin LOCATION: Room 3211 REASON FOR ECHOCARDIOGRAM: Chronic obstructive pulmonary disease (COPD), shortness of breath. 2-D MEASUREMENTS: IVS: 0.9 cm LV: 4.2 cm LVPW: 0.9 cm LA: 3.6 cm Aorta: 2.4 cm RV: 2.5 cm IVC: 1.3 cm DOPPLER MEASUREMENTS: Mitral E: 0.74 Mitral A: 0.92 Ratio: 0.8 Maximum tricuspid valve velocity: 3.8 m/s 2-D COMMENTS: 1. Normal left ventricular size, wall thickness, and normal global left ventricular systolic function. The estimated global left ventricular systolic ejection fraction is 60-65%. 2. Subjectively, the left atrium appeared to be mildly enlarged. The same for the right atrium. The right ventricle also appeared to be mildly enlarged, but with normal right ventricular free wall contraction. The atrial septum appeared to be normal without evidence of defect or shunt. 3. Normal aortic root. 4. A small pericardial effusion was noted, no evidence of cardiac tamponade. 5. Mildly calcified aortic valve with normal leaflet excursion. Mildly calcified mitral annulus with normal anterior mitral valve leaflet motion. Normal tricuspid valve and pulmonic valve. The proximal pulmonary artery branches were not well visualized. 6. The inferior vena cava was normal in size, central venous pressure is most likely normal. DOPPLER: Detects trace aortic regurgitation, mild mitral regurgitation, and moderate tricuspid regurgitation. The calculated pulmonary artery systolic pressure varies between 50-60 mmHg. Abnormal relaxation pattern was noted across the mitral valve leaflets as well as the mitral valve annulus consistent with a delayed relaxation, features of grade 1 left ventricular diastolic dysfunction. IMPRESSION: 1. Normal global left ventricular systolic function. There are some features of left ventricular diastolic dysfunction manifested by abnormal relaxation. 2. Aortic valve sclerosis with trace aortic regurgitation, but no aortic stenosis. 3. Mitral annulus calcification with mild mitral regurgitation. Subjectively, the left atrium appeared to be mildly enlarged. 4. Moderate tricuspid regurgitation with moderately severe pulmonary hypertension. The right heart chambers appeared to be mildly enlarged in limited views. The right ventricular free wall was beverly well. 5. A small pericardial effusion was noted, no evidence of cardiac tamponde. [facility]
[2018-08-22 08:00] VITALS: BP 133/55
[2018-08-22] MEDS: IPRATROPIUM 0.02% SOLN 0.5MG/2.5 ML NEB INH SCH ×3 (08:35→20:02)
[2018-08-22] MEDS: INDAPAMIDE 1.25MG TABLET PO SCH (08:41)
[2018-08-22] MEDS: MULTIVITAMINS/MINERALS THERAP 1 TAB PO SCH (08:41)
[2018-08-22] MEDS: SPIRONOLACTONE 12.5MG PER 1/2 TABLET PO SCH (08:42)
[2018-08-22] MEDS: VITAMIN D 1,000 INTERNATIONAL UNITS TABLET PO SCH (08:42)
[2018-08-22] MEDS: CYANOCOBALAMIN 500 MCG TAB PO SCH (08:42)
[2018-08-22] MEDS: LOSARTAN 50 MG TAB PO SCH (08:42)
[2018-08-22] MEDS: METOPROLOL TARTRATE 100 MG TAB PO SCH ×2 (08:43→21:05)
[2018-08-22] MEDS: POTASSIUM CHLORIDE 10% LIQ 20 MEQ/15 ML UDC PO SCH (08:43)
[2018-08-22] MEDS: predniSONE 20 MG TAB PO SCH (08:43)
[2018-08-22] MEDS: ASPIRIN 81 MG ENTERIC TAB PO SCH (08:43)
[2018-08-22] MEDS: OMEPRAZOLE 20 MG CAP PO SCH ×2 (08:43→21:05)
[2018-08-22] MEDS: ENOXAPARIN 30 MG/0.3 ML SYR (J1650) SC SCH (08:44)
[2018-08-22] MEDS: MAGNESIUM CHLORIDE 64 MG TABCR (SLO MAG) PO SCH ×2 (08:44→21:05)
[2018-08-22 11:42] VITALS: BP 126/53
--- NOTE | 2018-08-22 13:57 | IPNPDOC ---
Date Seen The patient was seen on 08/22/18. Progress Note SUBJECTIVE: Pt is down to baseline 3liters oxygen requirement, but still c/o TIRADO. Despite trial of lasix, no significant improvement, bnp is unimpressive. CT chest: pulm fibrosis. no PE, pneumonia, or CHF. pt denies any chest pain, pressure, tightness, pND, orthopnea, or lightheadedness, near syncope. denies dizziness. willing to work with physical therapy, but says, " I get so tired and I can't breath after." OBJECTIVE: PHYSICAL EXAMINATION: VITALS: PLS SEE BELOW GENERAL: Patient is awake, alert, oriented to person and place. Able to provide much of the history. She does have mild use of accessory respiratory muscles with 5 to 7 word conversational dyspnea. Pupils are round and reactive. Dry mucous membranes. Neck is supple. Full range of motion. No jugular venous distention or thyromegaly. LUNGS: Clear to auscultation in the upper lobes. Fine crackles at the bases. HEART: S1, S2. Sinus tachycardia. No murmurs, rubs or gallops. ABDOMEN: Soft, nontender, nondistended. Positive bowel sounds. No hepatosplenomegaly. EXTREMITIES. No cyanosis, clubbing or any pitting edema. LABORATORY DATA, IMAGING STUDIES, MICROBIOLOGY: PLS SEE BELOW EKG: SINUS TACHYCARDIA WITH OCCASIONAL SUPRAVENTRICULAR PREMATURE COMPLEXES MODERATE ST DEPRESSION No prior Electronically Signed on 08-20-2018 11:23:59 EDT by Cornelia Agudelo DD: Cornelia Agudelo MD 08/20/18 0858 DT: WILIAM 08/20/18 1123 DS: NICO 08/20/18 1123 08/20/18 1123 ASSESSMENT: 78-year-old female with worsening respiratory distress found to be hypoxic on 3 liters. IMPRESSION: This is a 78-year-old female, past medical history significant for chronic pulmonary fibrosis, hypertension, thrombocytopenia, hiatal hernia, reflux, hyperlipidemia, carotid artery stenosis, more than 90% on the right, status post carotid endarterectomy in 2011, allergic rhinitis, prediabetic, ejection fraction 60%, osteopenia, ex-smoker, diverticulitis, lumbar degenerative joint disease, vitamin B12 deficiency chronically on home oxygen at 3 liters and steroid dependent at 7.5 mg of prednisone daily presents to the emergency room with 2 day history of worsening shortness of breath, which she feels was exacerbated by pulmonary rehabilitation that she has had this past week. Patient has been in her usual state of health and usually on 3 liters of oxygen. This past week physical therapy had seen her at home three times this week. Asked her to do exercises including lifting her legs while she is in her chair and standing at her kitchen counter sink, but with increasing shortness of breath. According to the patient, often times hot weather also bothers her. She has not used any of her nebulizer inhalers more than prescribed. Had taken no other medications. She denies any fever or cough and states that she usually can ambulate at home about 10 to 15 feet without much difficulty. In the ER, she was found to desaturate to 80% on 3 liters of oxygen with ambulation. She was placed on 6 liters and still has saturations of 80%. CT chest was performed and according to Dr. Amaya, did not show any pulmonary embolism. There is chronic fibrosis as on previous CTs. The patient has advanced pulmonary fibrosis with reticulonodular and ground-glass opacity, bilateral hilar mediastinal lymphadenopathy as well. She is usually followed by Dr. Arthur Maynard, dental aide and had recently seen her about 4 to 5 months ago and was told that there would be no changes in any of her medic ations. Patient otherwise denies any chest pain, pressure, tightness, palpitations, lightheadedness or near-syncopal episode at home. She has not traveled outside the city and has not had any other sicks contacts. She otherwise denies any headache, changes in vision, rhinorrhea, sore throat, nausea, vomiting, abdominal pain, diarrhea or constipation. She has chronic oxygen use at 3 liters usually, now with dyspnea on exertion. No paroxysmal nocturnal dyspnea (PND), orthopnea. Patient has not had any weight gain, weight loss. No changes in appetite. No upper or lower extremity joint or muscle pain. Patient has had increasing weakness the past few days due to shortness of breath. Hospitalist was called to admit for progressive chronic fibrosis to rule out cor pulmonale or right-sided heart failure as well as to treat for possible pulmonary fibrosis exacerbation. Per Dr. Sagastume, dental aide network operations specialist, patient may benefit from low dose trial of Lasix as well as prednisone 40 mg, not for COPD exacerbation, but for pulmonary fibrosis exacerbation. Patient will be admitted as an inpatient for two midnights. Acute on chronic hypoxic respiratory failure, chronically on 3 liters of home oxygen at home. Currently hypoxic with saturations of 80 to 89% on [address] chest shows no pulmonary embolism, pneumonia or pulmonary edema. She currently has end-stage pulmonary fibrosis with possible exacerbation secondary to changes in temperature as well as recent exertional dyspnea. At this time, patient will be given a trial of Lasix, but will monitor patient's creatinine as well as prednisone 40 mg according to recommendations from Dr. Sagastume, dental aide network operations specialist. Patient follows with Dr. Maynard usually as outpatient. She does have a DO NOT RESUSCITATE, DO NOT INTUBATE status. Her prognosis remains guarded in light of progressive disease from the pulmonary fibrosis and worsening hypoxia. Cardiac markers will be cycled every 6 hourly. She will be admitted to telemetry to allow right-sided congestive heart failure arrhythmias as well as acute coronary syndrome as potential cause for patient's worsening shortness of breath. Pulmonary fibrosis, end-stage. Patient has been followed by Dr. Arthur Maynard as outpatient. No pulmonary embolism (PE) was seen on CT of the chest. Will provide supportive care with nebulizer treatments. Since she is tachycardic, will change from albuterol to Xopenex. She will be continued on her prednisone but will be increased to 40 mg for now until respiratory status improves. Will obtain a respiratory panel and MRSA screen. Will monitor clinically for any signs of cor pulmonale or right-sided heart failure. Trial of Lasix to decrease PA pressures and will obtain 2D echocardiogram to rule out severe pulmonary hypertension. Her prognosis remains very guarded in light of end-stage advanced pulmonary fibrosis. May benefit from palliative care referral. At this time she is DO NOT RESUSCITATE, DO NOT INTUBATE, but is electing for active treatment. History of peripheral arterial disease with carotid end-arterectomy on the right by Dr. Peña in [place]. She currently has no symptoms. Will continue her on her home medications. Hypertension, uncontrolled. Most likely secondary to respiratory distress. Patient's metoprolol will be resumed at 100 mg twice a day. She is continued on clonidine 0.1 at bedtime. Electrolyte abnormalities. She will be resumed on her home dose of magnesium as well as potassium being supplemented. Abnormal EKG: troponins unremarkable. Vitamin B12 deficiency. Continue on vitamin B12 supplements 1000 mcg daily. History of gastroesophageal reflux disease (GERD). Continue on Prilosec 20 mg twice a day. Vitamin D deficiency and osteopenia on DEXA scan. Continue on vitamin D 1000 units daily. DVT prophylaxis with Lovenox 30 mg subcutaneous daily. 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 Patient has been referred to pulmonary rehabilitation which we will continue as outpatient. Physical therapy while she is in the hospital. CODE STATUS: Patient states that she is DO NOT RESUSCITATE, DO NOT INTUBATE. She will bring her paperwork from home. DISPOSITION: Patient lives alone. Unsure whether she would like to proceed with living alone versus placement. At this time she would prefer to be discharged home after this hospitalization. VS, I&O, 24H, Fishbone Vital Signs/I&O Vital Signs Date Time Temp Pulse Resp B/P (MAP) Pulse Ox O2 Delivery O2 Flow Rate FiO2 08/22/18 04:00 3.0 08/22/18 03:57 98.4 72 18 133/63 (86) 100 08/20/18 21:25 Nasal Cannula I&O- Last 24 Hours up to 6 AM 08/22/18 06:00 Intake Total 800 ml Output Total 1100 ml Balance -300 ml Laboratory Data Microbiology Microbiology 08/20/18 Blood Culture - Preliminary, Resulted No growth after 24 hours . All specim... 08/20/18 Blood Culture - Preliminary, Resulted No growth after 24 hours . All specim... 08/20/18 MRSA Screen, Resulted Pending 08/20/18 Respiratory Virus Panel (PCR) (MICHAEL) - Final, Resulted MIGNON CERVANTES MD Aug 22, 2018 06:06
[2018-08-22 16:51] VITALS: BP 151/66
[2018-08-22] MEDS ORDERED: NITROGLYCERIN 0.4 MG SUBL TABLET SL STA (18:40)
[2018-08-22] MEDS ORDERED: GI COCKTAIL 50ML BTL(HYOSCYAMINE/MAALOX/LIDOCAINE VISCOUS)(1:3:1) PO PRN (18:45)
[2018-08-22] MEDS ORDERED: NITROGLYCERIN 0.3 MG SUBL TAB SL PRN (18:45)
[2018-08-22] MEDS ORDERED: GI COCKTAIL 50ML BTL(HYOSCYAMINE/MAALOX/LIDOCAINE VISCOUS)(1:3:1) PO ONE (18:45)
[2018-08-22 18:52] VITALS: BP 104/51
[2018-08-22 19:43] LABS: CPK CREATINE PHOSPHOKINASE 23 U/L (26-192); MB/CK RELATIVE INDEX 4.35 (< OR =4); TROPONIN I < 0.02 NG/ML (< 0.10)
[2018-08-22] MEDS: cloNIDine 0.1 MG TAB PO SCH (21:04)
[2018-08-22 22:00] VITALS: BP 112/54
[2018-08-23 00:32] LABS: CK-MB VALUE MASS 1.3 NG/ML (<3.6); CPK CREATINE PHOSPHOKINASE 15 U/L (26-192); MB/CK RELATIVE INDEX 8.67 (< OR =4); TROPONIN I < 0.02 NG/ML (< 0.10)
[2018-08-23] MEDS: SLF 3 ML SYR IV SCH ×4 (01:18→21:14)
[2018-08-23] MEDS: LEVALBUTEROL 1.25 MG/0.5 ML CONCENTRATE NEB INH SCH ×7 (04:00→23:36)
[2018-08-23 06:00] VITALS: BP 126/59
[2018-08-23] MEDS: IPRATROPIUM 0.02% SOLN 0.5MG/2.5 ML NEB INH SCH ×3 (07:57→19:38)
[2018-08-23] MEDS: ENOXAPARIN 30 MG/0.3 ML SYR (J1650) SC SCH (08:56)
[2018-08-23] MEDS: MAGNESIUM CHLORIDE 64 MG TABCR (SLO MAG) PO SCH ×2 (08:59→21:12)
[2018-08-23] MEDS: LOSARTAN 50 MG TAB PO SCH (08:59)
[2018-08-23] MEDS: OMEPRAZOLE 20 MG CAP PO SCH ×2 (08:59→21:14)
[2018-08-23] MEDS: ASPIRIN 81 MG ENTERIC TAB PO SCH (09:00)
[2018-08-23] MEDS: SPIRONOLACTONE 12.5MG PER 1/2 TABLET PO SCH (09:00)
[2018-08-23] MEDS: predniSONE 20 MG TAB PO SCH (09:00)
[2018-08-23] MEDS: CYANOCOBALAMIN 500 MCG TAB PO SCH (09:00)
[2018-08-23] MEDS: VITAMIN D 1,000 INTERNATIONAL UNITS TABLET PO SCH (09:01)
[2018-08-23] MEDS: INDAPAMIDE 1.25MG TABLET PO SCH (09:01)
[2018-08-23] MEDS: POTASSIUM CHLORIDE 10% LIQ 20 MEQ/15 ML UDC PO SCH (09:01)
[2018-08-23] MEDS: METOPROLOL TARTRATE 100 MG TAB PO SCH ×2 (09:01→21:13)
[2018-08-23] MEDS: MULTIVITAMINS/MINERALS THERAP 1 TAB PO SCH (09:02)
[2018-08-23 14:00] VITALS: BP 94/46
[2018-08-23] MEDS: MUPIROCIN 2% OINT 22 GM TUBE TOP SCH (21:00)
[2018-08-23] MEDS: cloNIDine 0.1 MG TAB PO SCH (21:13)
--- NOTE | 2018-08-23 21:22 | IPNPDOC ---
Date Seen The patient was seen on 08/23/18. Progress Note SUBJECTIVE: Patient denies any complaints today. Reported feeling well. Stated that she does not want to take blood thinners because of her increased tendency to bleed. Patient saturating well at baseline 3L O2 NC. OBJECTIVE PHYSICAL EXAMINATION: VITAL SIGNS: Please see below. General: No acute distress, Alert Eyes: Normal sclera, EOMI, LADONNA HENT: Atraumatic, neck supple, moist mucous membranes Cardiovascular: Normal rate, normal rhythm. No murmurs appreciated. Pulmonary: Clear to auscultation b/l, no wheezing GI: Soft, nontender, nondistended Skin: Warm and dry Neuro: CN grossly intact. No focal deficits. Strengths equal b/l. Psych: oriented x 3 LABORATORY DATA, IMAGING STUDIES, MICROBIOLOGY: Please see below. DVT prophylaxis ordered?: Y ASSESSMENT AND PLAN: 1. Severe pulmonary fibrosis - on 3L home O2 with intermittent worsening SOB. Desat to 80% in ER on presentation. - SOB improving now at baseline o2 requirement. - Follow with Dr. Maynard outpatient. - Dr. Oneill discussed with oncall cobbler sole, recommended low dose trial of lasix and prednisone for pulm fibrosis. - Symptoms are improving. patient is DNR/DNI. 2. MRSA nares + - mupirocin for 5 days. Contact isolation. 3. PAD - s/p carotid endarderectomy. c/w home meds. 4. HTN - Resumed home meds and monitor. VS, I&O, 24H, Fishbone Vital Signs/I&O Vital Signs Date Time Temp Pulse Resp B/P (MAP) Pulse Ox O2 Delivery O2 Flow Rate FiO2 08/23/18 14:00 96.8 86 18 94/46 (62 98 3.0 08/23/18 00:00 Nasal Cannula I&O- Last 24 Hours up to 6 AM 08/23/18 06:00 Intake Total 920 ml Output Total 600 ml Balance 320 ml Laboratory Data 24H LABS Laboratory Tests 2 08/22/18 23:48: Total Creatine Kinase 15L, Creatine Kinase MB 1.3, Creatine Kinase MB Relative Index 8.67H, Troponin I < 0.02 Microbiology Microbiology 08/20/18 Blood Culture - Preliminary, Resulted No Growth after 72 hours. All specime... 08/20/18 Blood Culture - Preliminary, Resulted No Growth after 72 hours. All specime... 08/20/18 MRSA Screen - Final, Complete Staph.aureus Methicillin Resis 08/20/18 Respiratory Virus Panel (PCR) (MICHAEL) - Final, Complete CLAY WILLIAM MD Aug 23, 2018 21:22
[2018-08-23 22:00] VITALS: BP 145/65
[2018-08-24] MEDS: LEVALBUTEROL 1.25 MG/0.5 ML CONCENTRATE NEB INH SCH ×5 (04:00→19:51)
[2018-08-24 06:03] LABS: HEMATOCRIT 35.4 % (36.0-47.0); HEMOGLOBIN 11.3 g/dl (12.0-15.5); MEAN CORPUSCULAR HEMOGLOBIN 30.6 pg (27.0-33.0); MEAN CORPUSCULAR HGB CONC 31.9 g/dl (32.0-36.5); MEAN CORPUSCULAR VOLUME 95.9 fl (80.0-96.0); PLATELET COUNT, AUTOMATED 152 10^3/uL (150-450); RED BLOOD COUNT 3.69 10^6/uL (4.00-5.40); WHITE BLOOD COUNT 6.9 10^3/uL (4.0-10.0)
[2018-08-24 06:26] LABS: BLOOD UREA NITROGEN 23 MG/DL (7-18); CALCIUM LEVEL 8.9 MG/DL (8.8-10.2); CARBON DIOXIDE LEVEL 43 MEQ/L (21-32); CHLORIDE LEVEL 94 MEQ/L (98-107); CREATININE FOR GFR 0.46 MG/DL (0.55-1.30); GLOMERULAR FILTRATION RATE > 60.0 (>39); GLUCOSE, FASTING 75 MG/DL (70-100); POTASSIUM SERUM 3.8 MEQ/L (3.5-5.1); SODIUM LEVEL 139 MEQ/L (136-145)
[2018-08-24] MEDS: SLF 3 ML SYR IV SCH ×3 (06:57→22:07)
[2018-08-24] MEDS: IPRATROPIUM 0.02% SOLN 0.5MG/2.5 ML NEB INH SCH ×3 (07:42→19:51)
[2018-08-24] MEDS: POTASSIUM CHLORIDE 10% LIQ 20 MEQ/15 ML UDC PO SCH (08:44)
[2018-08-24] MEDS: MAGNESIUM CHLORIDE 64 MG TABCR (SLO MAG) PO SCH ×2 (08:44→22:07)
[2018-08-24] MEDS: predniSONE 20 MG TAB PO SCH (08:45)
[2018-08-24] MEDS: MULTIVITAMINS/MINERALS THERAP 1 TAB PO SCH (08:45)
[2018-08-24] MEDS: OMEPRAZOLE 20 MG CAP PO SCH ×2 (08:45→22:06)
[2018-08-24] MEDS: SPIRONOLACTONE 12.5MG PER 1/2 TABLET PO SCH (08:45)
[2018-08-24] MEDS: INDAPAMIDE 1.25MG TABLET PO SCH (08:45)
[2018-08-24] MEDS: CYANOCOBALAMIN 500 MCG TAB PO SCH (08:46)
[2018-08-24] MEDS: LOSARTAN 50 MG TAB PO SCH (08:46)
[2018-08-24] MEDS: ASPIRIN 81 MG ENTERIC TAB PO SCH (08:46)
[2018-08-24] MEDS: MUPIROCIN 2% OINT 22 GM TUBE TOP SCH ×2 (08:47→22:54)
[2018-08-24] MEDS: METOPROLOL TARTRATE 100 MG TAB PO SCH ×2 (08:47→22:07)
[2018-08-24] MEDS: VITAMIN D 1,000 INTERNATIONAL UNITS TABLET PO SCH (08:48)
[2018-08-24 14:00] VITALS: BP 107/54
[2018-08-24] MEDS: MAALOX 30 ML SUSP *UDC PO PRN (16:53)
--- NOTE | 2018-08-24 19:48 | IPNPDOC ---
Date Seen The patient was seen on 08/24/18. Progress Note SUBJECTIVE: Patient denies any complaints today. Patient saturating well at baseline 3L O2 NC. Discussed with patient regarding tentative discharge tomorrow pending PT clearance. OBJECTIVE PHYSICAL EXAMINATION: VITAL SIGNS: Please see below. General: No acute distress, Alert Eyes: Normal sclera, EOMI, LADONNA HENT: Atraumatic, neck supple, moist mucous membranes Cardiovascular: Normal rate, normal rhythm. No murmurs appreciated. Pulmonary: Clear to auscultation b/l, no wheezing GI: Soft, nontender, nondistended Skin: Warm and dry Neuro: CN grossly intact. No focal deficits. Strengths equal b/l. Psych: oriented x 3 LABORATORY DATA, IMAGING STUDIES, MICROBIOLOGY: Please see below. DVT prophylaxis ordered?: Y ASSESSMENT AND PLAN: 1. Severe pulmonary fibrosis - on 3L home O2 with intermittent worsening SOB. Desat to 80% in ER on presentation. - SOB improving now at baseline o2 requirement. - Follow with Dr. Maynard outpatient. - Dr. Oneill discussed with oncall locomotive repairer diesel, recommended low dose trial of lasix and prednisone for pulm fibrosis. - Symptoms improved. patient is DNR/DNI. 2. MRSA nares + - mupirocin for 5 days. Contact isolation. 3. PAD - s/p carotid endarderectomy. c/w home meds. 4. HTN - Resumed home meds and monitor. VS, I&O, 24H, Fishbone Vital Signs/I&O Vital Signs Date Time Temp Pulse Resp B/P (MAP) Pulse Ox O2 Delivery O2 Flow Rate FiO2 08/24/18 14:00 97.0 78 24 107/54 (71) 98 3.0 08/23/18 00:00 Nasal Cannula I&O- Last 24 Hours up to 6 AM 08/24/18 06:00 Intake Total 870 ml Output Total 700 ml Balance 170 ml Laboratory Data 24H LABS Laboratory Tests 2 08/24/18 05:43: Nucleated Red Blood Cells % (auto) 0.0, Anion Gap 2L, Glomerular Filtration Rate > 60.0, Blood Urea Nitrogen 23H, Creatinine 0.46L, Sodium Level 139, Potassium Level 3.8, Chloride Level 94L, Carbon Dioxide Level 43H, Calcium Level 8.9 CBC/BMP Laboratory Tests 08/24/18 05:43 Red Blood Count 3.69 L, Mean Corpuscular Volume 95.9, Mean Corpuscular Hemoglobin 30.6, Mean Corpuscular Hemoglobin Concent 31.9 L, Red Cell Distribution Width 14.1, Calcium Level 8.9 Microbiology Microbiology 08/20/18 Blood Culture - Preliminary, Resulted No Growth after 72 hours. All specime... 08/20/18 Blood Culture - Preliminary, Resulted No Growth after 72 hours. All specime... 08/20/18 MRSA Screen - Final, Complete Staph.aureus Methicillin Resis 08/20/18 Respiratory Virus Panel (PCR) (MICHAEL) - Final, Complete CLAY WILLIAM MD Aug 24, 2018 19:47
[2018-08-24 22:00] VITALS: BP 131/60
[2018-08-24] MEDS: cloNIDine 0.1 MG TAB PO SCH (22:06)
[2018-08-25] MEDS: LEVALBUTEROL 1.25 MG/0.5 ML CONCENTRATE NEB INH SCH ×6 (00:21→19:59)
[2018-08-25 06:00] VITALS: BP 139/61
[2018-08-25] MEDS: SLF 3 ML SYR IV SCH ×3 (06:40→22:45)
[2018-08-25] MEDS: IPRATROPIUM 0.02% SOLN 0.5MG/2.5 ML NEB INH SCH ×3 (07:37→19:59)
[2018-08-25] MEDS: POTASSIUM CHLORIDE 10% LIQ 20 MEQ/15 ML UDC PO SCH (08:40)
[2018-08-25] MEDS: INDAPAMIDE 1.25MG TABLET PO SCH (08:40)
[2018-08-25] MEDS: VITAMIN D 1,000 INTERNATIONAL UNITS TABLET PO SCH (08:40)
[2018-08-25] MEDS: SPIRONOLACTONE 12.5MG PER 1/2 TABLET PO SCH (08:40)
[2018-08-25] MEDS: MAALOX 30 ML SUSP *UDC PO PRN ×2 (08:40→17:16)
[2018-08-25] MEDS: predniSONE 20 MG TAB PO SCH (08:40)
[2018-08-25] MEDS: MULTIVITAMINS/MINERALS THERAP 1 TAB PO SCH (08:43)
[2018-08-25] MEDS: ASPIRIN 81 MG ENTERIC TAB PO SCH (08:43)
[2018-08-25] MEDS: LOSARTAN 50 MG TAB PO SCH (08:43)
[2018-08-25] MEDS: OMEPRAZOLE 20 MG CAP PO SCH ×2 (08:43→20:52)
[2018-08-25] MEDS: MAGNESIUM CHLORIDE 64 MG TABCR (SLO MAG) PO SCH ×2 (08:43→20:52)
[2018-08-25] MEDS: METOPROLOL TARTRATE 100 MG TAB PO SCH ×2 (08:43→20:51)
[2018-08-25] MEDS: MUPIROCIN 2% OINT 22 GM TUBE TOP SCH ×2 (08:44→20:51)
[2018-08-25] MEDS: CYANOCOBALAMIN 500 MCG TAB PO SCH (08:44)
[2018-08-25 14:00] VITALS: BP 145/65
--- NOTE | 2018-08-25 14:48 | IPNPDOC ---
Date Seen The patient was seen on 08/25/18. Progress Note SUBJECTIVE: Patient denies any complaints but reportedly desaturate yesterday when walking with PT. Will keep patient in hospital for now until clear by PT. OBJECTIVE PHYSICAL EXAMINATION: VITAL SIGNS: Please see below. General: No acute distress, Alert Eyes: Normal sclera, EOMI, LADONNA HENT: Atraumatic, neck supple, moist mucous membranes Cardiovascular: Normal rate, normal rhythm. No murmurs appreciated. Pulmonary: Clear to auscultation b/l, no wheezing GI: Soft, nontender, nondistended Skin: Warm and dry Neuro: CN grossly intact. No focal deficits. Strengths equal b/l. Psych: oriented x 3 LABORATORY DATA, IMAGING STUDIES, MICROBIOLOGY: Please see below. DVT prophylaxis ordered?: Y ASSESSMENT AND PLAN: 1. Severe pulmonary fibrosis - on 3L home O2 with intermittent worsening SOB. Desat to 80% in ER on presentation. - SOB improving now at baseline o2 requirement. - Follow with Dr. Maynard outpatient. - Dr. Oneill discussed with oncall scrap crane operator, recommended low dose trial of lasix and prednisone for pulm fibrosis. - Symptoms improved. patient is DNR/DNI. 2. MRSA nares + - mupirocin for 5 days. Contact isolation. 3. PAD - s/p carotid endarderectomy. c/w home meds. 4. HTN - Resumed home meds and monitor. VS, I&O, 24H, Fishbone Vital Signs/I&O Vital Signs Date Time Temp Pulse Resp B/P (MAP) Pulse Ox O2 Delivery O2 Flow Rate FiO2 08/25/18 14:16 82 08/25/18 14:16 16 08/25/18 08:43 102/64 08/25/18 06:00 98.4 99 3.0 08/23/18 00:00 Nasal Cannula I&O- Last 24 Hours up to 6 AM 08/25/18 06:00 Intake Total 390 ml Output Total 275 ml Balance 115 ml Laboratory Data Microbiology Microbiology 08/20/18 Blood Culture - Final, Complete NO GROWTH AFTER 5 DAYS 08/20/18 Blood Culture - Final, Complete NO GROWTH AFTER 5 DAYS 08/20/18 MRSA Screen - Final, Complete Staph.aureus Methicillin Resis 08/20/18 Respiratory Virus Panel (PCR) (MICHAEL) - Final, Complete CLAY WILLIAM MD Aug 25, 2018 14:48
[2018-08-25] MEDS: cloNIDine 0.1 MG TAB PO SCH (20:52)
[2018-08-25 22:00] VITALS: BP 136/65
[2018-08-26] MEDS: LEVALBUTEROL 1.25 MG/0.5 ML CONCENTRATE NEB INH SCH ×7 (00:58→23:39)
[2018-08-26 06:00] VITALS: BP 137/61
[2018-08-26] MEDS: SLF 3 ML SYR IV SCH ×2 (06:07→14:33)
[2018-08-26 06:09] LABS: HEMATOCRIT 35.9 % (36.0-47.0); HEMOGLOBIN 11.2 g/dl (12.0-15.5); MEAN CORPUSCULAR HEMOGLOBIN 29.3 pg (27.0-33.0); MEAN CORPUSCULAR HGB CONC 31.2 g/dl (32.0-36.5); PLATELET COUNT, AUTOMATED 155 10^3/uL (150-450); RED BLOOD COUNT 3.82 10^6/uL (4.00-5.40); WHITE BLOOD COUNT 7.3 10^3/uL (4.0-10.0)
[2018-08-26 06:29] LABS: BLOOD UREA NITROGEN 29 MG/DL (7-18); CALCIUM LEVEL 9.2 MG/DL (8.8-10.2); CARBON DIOXIDE LEVEL 44 MEQ/L (21-32); CHLORIDE LEVEL 93 MEQ/L (98-107); CREATININE FOR GFR 0.48 MG/DL (0.55-1.30); GLOMERULAR FILTRATION RATE > 60.0 (>39); GLUCOSE, FASTING 80 MG/DL (70-100); POTASSIUM SERUM 3.7 MEQ/L (3.5-5.1); SODIUM LEVEL 140 MEQ/L (136-145)
[2018-08-26] MEDS: IPRATROPIUM 0.02% SOLN 0.5MG/2.5 ML NEB INH SCH ×3 (07:25→19:36)
[2018-08-26] MEDS: MUPIROCIN 2% OINT 22 GM TUBE TOP SCH ×2 (08:05→22:15)
[2018-08-26] MEDS: POTASSIUM CHLORIDE 10% LIQ 20 MEQ/15 ML UDC PO SCH (08:06)
[2018-08-26] MEDS: MAGNESIUM CHLORIDE 64 MG TABCR (SLO MAG) PO SCH ×2 (08:06→22:14)
[2018-08-26] MEDS: MULTIVITAMINS/MINERALS THERAP 1 TAB PO SCH (08:06)
[2018-08-26] MEDS: OMEPRAZOLE 20 MG CAP PO SCH ×2 (08:06→22:13)
[2018-08-26] MEDS: ASPIRIN 81 MG ENTERIC TAB PO SCH (08:07)
[2018-08-26] MEDS: predniSONE 20 MG TAB PO SCH (08:07)
[2018-08-26] MEDS: SPIRONOLACTONE 12.5MG PER 1/2 TABLET PO SCH (08:07)
[2018-08-26] MEDS: VITAMIN D 1,000 INTERNATIONAL UNITS TABLET PO SCH (08:07)
[2018-08-26] MEDS: CYANOCOBALAMIN 500 MCG TAB PO SCH (08:07)
[2018-08-26] MEDS: METOPROLOL TARTRATE 100 MG TAB PO SCH ×2 (08:10→22:14)
[2018-08-26] MEDS: LOSARTAN 50 MG TAB PO SCH (08:10)
[2018-08-26] MEDS: INDAPAMIDE 1.25MG TABLET PO SCH (08:11)
[2018-08-26] MEDS: MAALOX 30 ML SUSP *UDC PO PRN ×2 (08:11→16:49)
[2018-08-26] MEDS ORDERED: NITROGLYCERIN 2% OINT 1 GM *U/D* PKT TOP PRN (11:45)
[2018-08-26 14:00] VITALS: BP 132/78
[2018-08-26] MEDS: ANUSOL HC 25MG SUPP PR SCH ×2 (14:00→22:13)
[2018-08-26] MEDS ORDERED: MUPI2OI TOP (14:53)
--- NOTE | 2018-08-26 14:55 | DS.PDOC ---
Discharge Summary General Date of Admission Aug 20, 2018 at 11:54 Date of Discharge 08/28/18 Discharge Summary PROCEDURES PERFORMED DURING STAY: [None]. ADMITTING DIAGNOSES: 1. Acute on chronic respiratory failure 2. Pulmonary Fibrosis end stage 3. PAD 4. HTN 5. Suspected Corpulmonale 6. GERD 7. Vitamin D deficiency DISCHARGE DIAGNOSES: 1. Acute on chronic respiratory failure 2. Pulmonary Fibrosis end stage 3. PAD 4. HTN 5. Suspected Corpulmonale 6. GERD 7. Vitamin D deficiency COMPLICATIONS/CHIEF COMPLAINT: Hypoxia Pulmonary Fibrosis. HISTORY OF PRESENT ILLNESS: "This is a 78-year-old female, past medical history significant for chronic pulmonary fibrosis, hypertension, thrombocytopenia, hiatal hernia, reflux, hyperlipidemia, carotid artery stenosis, more than 90% on the right, status post carotid endarterectomy in 2011, allergic rhinitis, prediabetic, ejection fraction 60%, osteopenia, ex-smoker, diverticulitis, lumbar degenerative joint disease, vitamin B12 deficiency chronically on home oxygen at 3 liters and steroid dependent at 7.5 mg of prednisone daily presents to the emergency room with 2 day history of worsening shortness of breath, which she feels was exacerbated by pulmonary rehabilitation that she has had this past week. Patient has been in her usual state of health and usually on 3 liters of oxygen. This past week physical therapy had seen her at home three times this week. Asked her to do exercises including lifting her legs while she is in her chair and standing at her kitchen counter sink, but with increasing shortness of breath. According to the patient, often times hot weather also bothers her. She has not used any of her nebulizer inhalers more than prescribed. Had taken no other medications. She denies any fever or cough and states that she usually can ambulate at home about 10 to 15 feet without much difficulty. In the ER, she was found to desaturate to 80% on 3 liters of oxygen with ambulation. She was placed on 6 liters and still has saturations of 80%. CT chest was performed and according to Dr. Amaya, did not show any pulmonary embolism. There is chronic fibrosis as on previous CTs. The patient has advanced pulmonary fibrosis with reticulonodular and ground-glass opacity, bilateral hilar mediastinal lymphadenopathy as well. She is usually followed by Dr. Arthur Maynard, vocational placement specialist and had recently seen her about 4 to 5 months ago and was told that there would be no changes in any of her medications. Patient otherwise denies any chest pain, pressure, tightness, palpitations, lightheadedness or near-syncopal episode at home. She has not traveled outside the city and has not had any other sicks contacts. She otherwise denies any headache, changes in vision, rhinorrhea, sore throat, nausea, vomiting, abdominal pain, diarrhea or constipation. She has chronic oxygen use at 3 liters usually, now with dyspnea on exertion. No paroxysmal nocturnal dyspnea (PND), orthopnea. Patient has not had any weight gain, weight loss. No changes in appetite. No upper or lower extremity joint or muscle pain. Patient has had increasing weakness the past few days due to shortness of breath. Hospitalist was called to admit for progressive chronic fibrosis to rule out cor pulmonale or right-sided heart failure as well as to treat for possible pulmonary fibrosis exacerbation. Per Dr. Sagastume, vocational placement specialist boiler control room operator, patient may benefit from low dose trial of Lasix as well as prednisone 40 mg, not for COPD exacerbation, but for pulmonary fibrosis exacerbation. Patient will be admitted as an inpatient for two midnights." HOSPITAL COURSE: Patient was admitted and treated with steroids with improvement in symptoms. Has doing well with PT although has had episode of desaturation with ambulation 2 days prior, has improved since then. Has poor pulmonary status/reserve at baseline. Encourage to continue being active/ambulate without over-exertion. Saturation has been stable at 3L same as home regimen otherwise. To discharge to f/u PMD and Pulmonary this week. Will take off steroid at this time. Also treated with 5 days of mupiricin for MRSA nares colonization. Reported having some diarrhea episodes this morning but had since resolved. Has not been on abx. DISCHARGE MEDICATIONS: Please see below. ALLERGIES: Please see below. PHYSICAL EXAMINATION ON DISCHARGE: VITAL SIGNS: Please see below. General: No acute distress, Alert Eyes: Normal sclera, EOMI, LADONNA HENT: Atraumatic, neck supple, moist mucous membranes Cardiovascular: Normal rate, normal rhythm. No murmurs appreciated. Pulmonary: No wheezing. fine b/l fine crackles. GI: Soft, nontender, nondistended Skin: Warm and dry Neuro: CN grossly intact. No focal deficits. Strengths equal b/l. Psych: oriented x 3 LABORATORY DATA: Please see below. IMAGING: CXR- Impression: Diffuse fibrosis. Subtle superimposed right basilar infiltrate/atelectasis is suggested. CT CHEST ANGIO- Impression: 1. No evidence for pulmonary embolus. Thoracic aorta without aneurysm or dissection. 2. Advanced diffuse fibrosis and chronic changes similar to 05/26/2017. No consolidation or effusion appreciated. ACTIVITY: [As tolerated]. DIET: No added salt diet DISCHARGE PLAN: f/u PMD and Pulmonology within 1 week DISPOSITION: Home. DISCHARGE INSTRUCTIONS: f/u PMD and Pulmonology within 1 week ITEMS TO FOLLOWUP ON ON OUTPATIENT: 1. none DISCHARGE CONDITION: [Stable]. TIME SPENT ON DISCHARGE: 33 minutes. Vital Signs/I&Os Vital Signs Date Time Temp Pulse Resp B/P (MAP) Pulse Ox O2 Delivery O2 Flow Rate FiO2 08/26/18 14:00 97.0 77 18 132/78 (96) 91 3.0 08/26/18 07:25 Nasal Cannula I&O- Last 24 Hours up to 6 AM 08/26/18 06:00 Intake Total 500 ml Output Total 150 ml Balance 350 ml Laboratory Data Labs 24H Laboratory Tests 2 08/26/18 05:41: Nucleated Red Blood Cells % (auto) 0.0, Anion Gap 3L, Glomerular Filtration Rate > 60.0, Blood Urea Nitrogen 29H, Creatinine 0.48L, Sodium Level 140, Potassium Level 3.7, Chloride Level 93L, Carbon Dioxide Level 44H, Calcium Level 9.2 CBC/BMP Laboratory Tests 08/26/18 05:41 Red Blood Count 3.82 L, Mean Corpuscular Volume 94.0, Mean Corpuscular Hemoglobin 29.3, Mean Corpuscular Hemoglobin Concent 31.2 L, Red Cell Distribution Width 14.2, Calcium Level 9.2 Microbiology Microbiology 08/20/18 Blood Culture - Final, Complete NO GROWTH AFTER 5 DAYS 08/20/18 Blood Culture - Final, Complete NO GROWTH AFTER 5 DAYS 08/20/18 MRSA Screen - Final, Complete Staph.aureus Methicillin Resis 08/20/18 Respiratory Virus Panel (PCR) (MICHAEL) - Final, Complete Discharge Medications Scheduled Aspirin (Aspirin EC) 81 Mg Tab, 81 MG PO DAILY, (Reported) Azelastine HCl (Azelastine HCl) 0.1 % Spr, 1 SPRAY NA DAILY, (Reported) Calcium Carbonate/Vitamin D3 (Calcium 600-Vit D3 800 Tablet) 1 Tab Tab, 1 TAB PO BID, (Reported) Clonidine HCl (Clonidine HCl) 0.2 Mg Tab, 0.1 MG PO QHS, (Reported) Cyanocobalamin (Vitamin B-12) (Vitamin B-12) 1,000 Mcg Tab, 1,000 MCG PO DAILY, (Reported) Indapamide (Indapamide) 2.5 Mg Tab, 2.5 MG PO DAILY, (Reported) Losartan Potassium (Cozaar) 100 Mg Tab, 100 MG PO DAILY, (Reported) Magnesium Chloride (Mag64) 64 Mg Tablet.dr, 128 MG PO QAM, (Reported) Magnesium Chloride (Mag64) 64 Mg Tablet.dr, 64 MG PO QHS, (Reported) Metoprolol Tartrate (Metoprolol Tartrate) 100 Mg Tab, 100 MG PO BID, (Reported) Multivitamins (Thera M Plus Tablet) 1 Each Tablet, 1 TAB PO DAILY, (Reported) Omeprazole (Omeprazole) 20 Mg Cap, 20 MG PO BID, (Reported) Potassium Chloride (Potassium Chloride) 20 Meq Tab, 20 MEQ PO DAILY, (Reported) Prednisone (Prednisone) 5 Mg Tab, 7.5 MG PO DAILY, (Reported) Spironolactone (Spironolactone) 25 Mg Tab, 12.5 MG PO DAILY, (Reported) Sucralfate (Sucralfate) 1 Gm Tablet, 1 GM PO BID, (Reported) Vitamin D (Vitamin D3) 1,000 Unit Tablet, 1,000 UNITS PO DAILY, (Reported) Scheduled PRN Albuterol Sulf (Albuterol Sulfate) 2.5 Mg/3 Ml Nebu, 1 GAURI INH QID PRN for SOB/WHEEZING, (Reported) Albuterol Sulfate (Ventolin Hfa) 18 Gm Hfa.aer.ad, 2 PUFF INH Q6H PRN for [place] RTNESS OF BREATH, (Reported) Calcium Carb/Magnesium Hydrox (Antacid Chewable Tablet) 1 Chw Chw, 1 CHW PO PRN PRN for HEARTBURN, (Reported) Mometasone Furoate Monohydrate (Nasonex) 17 Gm [place].pump, 1 SPRAY NA BID PRN for ALLERGIES, (Reported) Allergies Coded Allergies: SUNITA Inhibitors (Verified Adverse Reaction, Unknown, Cough, 08/20/18) aspirin (Verified Adverse Reaction, Unknown, Causes platelets to drop, 08/20/18) CLAY WILLIAM MD Aug 26, 2018 14:55
--- NOTE | 2018-08-26 15:03 | IPNPDOC ---
Date Seen The patient was seen on 08/26/18. Progress Note SUBJECTIVE: Patient reports feeling well. However, became SOB and sat dropped down to 79% on 3L O2. Will not plan for discharge today. OBJECTIVE PHYSICAL EXAMINATION: VITAL SIGNS: Please see below. General: No acute distress, Alert Eyes: Normal sclera, EOMI, LADONNA HENT: Atraumatic, neck supple, moist mucous membranes Cardiovascular: Normal rate, normal rhythm. No murmurs appreciated. Pulmonary: Clear to auscultation b/l, no wheezing GI: Soft, nontender, nondistended Skin: Warm and dry Neuro: CN grossly intact. No focal deficits. Strengths equal b/l. Psych: oriented x 3 LABORATORY DATA, IMAGING STUDIES, MICROBIOLOGY: Please see below. DVT prophylaxis ordered?: Y ASSESSMENT AND PLAN: 1. Severe pulmonary fibrosis - on 3L home O2 with intermittent worsening SOB. Desat to 80% in ER on presentation. - SOB improving now at baseline o2 requirement. - Follow with Dr. Maynard outpatient. - Dr. Oneill discussed with oncall manager application development, recommended low dose trial of lasix and prednisone for pulm fibrosis. - Symptoms improved, however still desat will walking. Will continue to work with PT and stay on steroid until more stable. - Very poor pulmonary status at baseline with minimal reserve. - patient is DNR/DNI. 2. MRSA nares + - mupirocin for 5 days. Contact isolation. 3. PAD - s/p carotid endarderectomy. c/w home meds. 4. HTN - Resumed home meds and monitor. VS, I&O, 24H, Fishbone Vital Signs/I&O Vital Signs Date Time Temp Pulse Resp B/P (MAP) Pulse Ox O2 Delivery O2 Flow Rate FiO2 08/26/18 14:00 97.0 77 18 132/78 (96) 91 3.0 08/26/18 07:25 Nasal Cannula I&O- Last 24 Hours up to 6 AM 08/26/18 06:00 Intake Total 500 ml Output Total 150 ml Balance 350 ml Laboratory Data 24H LABS Laboratory Tests 2 08/26/18 05:41: Nucleated Red Blood Cells % (auto) 0.0, Anion Gap 3L, Glomerular Filtration Rate > 60.0, Blood Urea Nitrogen 29H, Creatinine 0.48L, Sodium Level 140, Potassium Level 3.7, Chloride Level 93L, Carbon Dioxide Level 44H, Calcium Level 9.2 CBC/BMP Laboratory Tests 08/26/18 05:41 Red Blood Count 3.82 L, Mean Corpuscular Volume 94.0, Mean Corpuscular Hemoglobin 29.3, Mean Corpuscular Hemoglobin Concent 31.2 L, Red Cell Distribution Width 14.2, Calcium Level 9.2 Microbiology Microbiology 08/20/18 Blood Culture - Final, Complete NO GROWTH AFTER 5 DAYS 08/20/18 Blood Culture - Final, Complete NO GROWTH AFTER 5 DAYS 08/20/18 MRSA Screen - Final, Complete Staph.aureus Methicillin Resis 08/20/18 Respiratory Virus Panel (PCR) (MICHAEL) - Final, Complete CLAY WILLIAM MD Aug 26, 2018 15:03
[2018-08-26 22:00] VITALS: BP 141/63
[2018-08-26] MEDS: cloNIDine 0.1 MG TAB PO SCH (22:14)
[2018-08-27] MEDS: SLF 3 ML SYR IV SCH ×4 (03:37→22:48)
[2018-08-27] MEDS: LEVALBUTEROL 1.25 MG/0.5 ML CONCENTRATE NEB INH SCH ×5 (04:54→19:37)
[2018-08-27 06:00] VITALS: BP 154/64
[2018-08-27] MEDS: IPRATROPIUM 0.02% SOLN 0.5MG/2.5 ML NEB INH SCH ×3 (07:22→19:37)
[2018-08-27] MEDS: MAALOX 30 ML SUSP *UDC PO PRN ×2 (08:40→17:28)
[2018-08-27] MEDS: predniSONE 20 MG TAB PO SCH (08:41)
[2018-08-27] MEDS: INDAPAMIDE 1.25MG TABLET PO SCH (08:41)
[2018-08-27] MEDS: POTASSIUM CHLORIDE 10% LIQ 20 MEQ/15 ML UDC PO SCH (08:41)
[2018-08-27] MEDS: CYANOCOBALAMIN 500 MCG TAB PO SCH (08:41)
[2018-08-27] MEDS: OMEPRAZOLE 20 MG CAP PO SCH ×2 (08:41→22:10)
[2018-08-27] MEDS: VITAMIN D 1,000 INTERNATIONAL UNITS TABLET PO SCH (08:41)
[2018-08-27] MEDS: SPIRONOLACTONE 12.5MG PER 1/2 TABLET PO SCH (08:41)
[2018-08-27] MEDS: MULTIVITAMINS/MINERALS THERAP 1 TAB PO SCH (08:41)
[2018-08-27] MEDS: ASPIRIN 81 MG ENTERIC TAB PO SCH (08:41)
[2018-08-27] MEDS: ANUSOL HC 25MG SUPP PR SCH ×2 (08:42→22:10)
[2018-08-27] MEDS: MAGNESIUM CHLORIDE 64 MG TABCR (SLO MAG) PO SCH ×2 (08:43→22:11)
[2018-08-27] MEDS: MUPIROCIN 2% OINT 22 GM TUBE TOP SCH ×2 (08:43→22:12)
[2018-08-27] MEDS: LOSARTAN 50 MG TAB PO SCH (08:44)
[2018-08-27] MEDS: METOPROLOL TARTRATE 100 MG TAB PO SCH ×2 (08:44→22:11)
--- NOTE | 2018-08-27 11:34 | IPNPDOC ---
Date Seen The patient was seen on 08/27/18. Progress Note SUBJECTIVE: Patient desat into 70s yesterday and reported SOB after walking with PT yesterday. Still states that she does not feel great and reports indigestion from her hernia. Although looks comfortable and saturating well at rest. OBJECTIVE PHYSICAL EXAMINATION: VITAL SIGNS: Please see below. General: No acute distress, Alert Eyes: Normal sclera, EOMI, LADONNA HENT: Atraumatic, neck supple, moist mucous membranes Cardiovascular: Normal rate, normal rhythm. No murmurs appreciated. Pulmonary: Clear to auscultation b/l, no wheezing GI: Soft, nontender, nondistended Skin: Warm and dry Neuro: CN grossly intact. No focal deficits. Strengths equal b/l. Psych: oriented x 3 LABORATORY DATA, IMAGING STUDIES, MICROBIOLOGY: Please see below. DVT prophylaxis ordered?: Y ASSESSMENT AND PLAN: 1. Severe pulmonary fibrosis - on 3L home O2 with intermittent worsening SOB. Desat to 80% in ER on presentation. - SOB improving now at baseline o2 requirement. - Follow with Dr. Maynard outpatient. - Dr. Oneill discussed with oncall field servicer, recommended low dose trial of lasix and prednisone for pulm fibrosis. - Symptoms improved, however desat will walking. Will continue to work with PT and stay on steroid until more stable. - Very poor pulmonary status at baseline with minimal reserve. - patient is DNR/DNI. 2. MRSA nares + - mupirocin for 5 days. Contact isolation. 3. PAD - s/p carotid endarderectomy. c/w home meds. 4. HTN - Resumed home meds and monitor. VS, I&O, 24H, Fishbone Vital Signs/I&O Vital Signs Date Time Temp Pulse Resp B/P (MAP) Pulse Ox O2 Delivery O2 Flow Rate FiO2 08/27/18 08:44 77 146/65 08/27/18 06:00 96.4 18 99 3.0 08/26/18 07:25 Nasal Cannula I&O- Last 24 Hours up to 6 AM0 08/27/18 06:00 Intake Total 510 ml Output Total 300 ml Balance 210 ml Laboratory Data Microbiology Microbiology 08/20/18 Blood Culture - Final, Complete NO GROWTH AFTER 5 DAYS 08/20/18 Blood Culture - Final, Complete NO GROWTH AFTER 5 DAYS 08/20/18 MRSA Screen - Final, Complete Staph.aureus Methicillin Resis 08/20/18 Respiratory Virus Panel (PCR) (MICHAEL) - Final, Complete CLAY WILLIAM MD Aug 27, 2018 11:34
[2018-08-27 14:00] VITALS: BP 100/49
[2018-08-27 22:00] VITALS: BP 134/60
[2018-08-27] MEDS: cloNIDine 0.1 MG TAB PO SCH (22:10)
[2018-08-28] MEDS: LEVALBUTEROL 1.25 MG/0.5 ML CONCENTRATE NEB INH SCH ×5 (00:43→15:20)
[2018-08-28 05:45] LABS: HEMATOCRIT 36.3 % (36.0-47.0); HEMOGLOBIN 11.5 g/dl (12.0-15.5); MEAN CORPUSCULAR HEMOGLOBIN 30.3 pg (27.0-33.0); MEAN CORPUSCULAR HGB CONC 31.7 g/dl (32.0-36.5); MEAN CORPUSCULAR VOLUME 95.5 fl (80.0-96.0); PLATELET COUNT, AUTOMATED 168 10^3/uL (150-450); WHITE BLOOD COUNT 8.7 10^3/uL (4.0-10.0)
[2018-08-28 06:00] VITALS: BP 141/63
[2018-08-28 06:03] LABS: BLOOD UREA NITROGEN 24 MG/DL (7-18); CALCIUM LEVEL 8.9 MG/DL (8.8-10.2); CARBON DIOXIDE LEVEL 44 MEQ/L (21-32); CHLORIDE LEVEL 92 MEQ/L (98-107); CREATININE FOR GFR 0.43 MG/DL (0.55-1.30); GLOMERULAR FILTRATION RATE > 60.0 (>39); GLUCOSE, FASTING 89 MG/DL (70-100); POTASSIUM SERUM 4.3 MEQ/L (3.5-5.1); SODIUM LEVEL 137 MEQ/L (136-145)
[2018-08-28] MEDS: SLF 3 ML SYR IV SCH ×2 (07:20→14:28)
[2018-08-28] MEDS: IPRATROPIUM 0.02% SOLN 0.5MG/2.5 ML NEB INH SCH ×2 (08:00→11:38)
[2018-08-28] MEDS: POTASSIUM CHLORIDE 10% LIQ 20 MEQ/15 ML UDC PO SCH (08:42)
[2018-08-28] MEDS: ANUSOL HC 25MG SUPP PR SCH (08:42)
[2018-08-28] MEDS: LOSARTAN 50 MG TAB PO SCH (08:43)
[2018-08-28] MEDS: VITAMIN D 1,000 INTERNATIONAL UNITS TABLET PO SCH (08:43)
[2018-08-28] MEDS: CYANOCOBALAMIN 500 MCG TAB PO SCH (08:43)
[2018-08-28] MEDS: SPIRONOLACTONE 12.5MG PER 1/2 TABLET PO SCH (08:43)
[2018-08-28] MEDS: MULTIVITAMINS/MINERALS THERAP 1 TAB PO SCH (08:43)
[2018-08-28] MEDS: INDAPAMIDE 1.25MG TABLET PO SCH (08:43)
[2018-08-28] MEDS: predniSONE 20 MG TAB PO SCH (08:43)
[2018-08-28 08:44] VITALS: BP 139/63
[2018-08-28] MEDS: MUPIROCIN 2% OINT 22 GM TUBE TOP SCH (08:44)
[2018-08-28] MEDS: MAGNESIUM CHLORIDE 64 MG TABCR (SLO MAG) PO SCH (08:44)
[2018-08-28] MEDS: ASPIRIN 81 MG ENTERIC TAB PO SCH (08:44)
[2018-08-28] MEDS: OMEPRAZOLE 20 MG CAP PO SCH (08:44)
[2018-08-28] MEDS: METOPROLOL TARTRATE 100 MG TAB PO SCH (08:44)
[2018-08-28 14:00] VITALS: BP 115/56
== END 2018-08-28 16:36 | disposition home health service (06) | DRG 196 ==
LOC: M ED 08:27 → EEVIPCON 11:54 → M ED INP 11:54 → M PCU 14:00 → M MSPAV 08-22 15:45
PROVIDERS: ADMIT General Practice; ATTEND Student in an Organized Health Care Education/Training Program
DX: J84.10 Pulmonary fibrosis, unspecified (principal); J96.21 Acute and chronic respiratory failure with hypoxia; R64 Cachexia; Z68.1 Body mass index [BMI] 19.9 or less, adult; I10 Essential (primary) hypertension; D69.6 Thrombocytopenia, unspecified; K44.9 Diaphragmatic hernia without obstruction or gangrene; K21.9 Gastro-esophageal reflux disease without esophagitis; E78.5 Hyperlipidemia, unspecified; Z66 Do not resuscitate; J30.9 Allergic rhinitis, unspecified; R73.03 Prediabetes; I73.9 Peripheral vascular disease, unspecified; M85.80 Other specified disorders of bone density and structure, unspecified site; I27.81 Cor pulmonale (chronic); E55.9 Vitamin D deficiency, unspecified; M51.36 Other intervertebral disc degeneration, lumbar region; E53.8 Deficiency of other specified B group vitamins; Z99.81 Dependence on supplemental oxygen; Z79.52 Long term (current) use of systemic steroids; Z87.891 Personal history of nicotine dependence; Z88.6 Allergy status to analgesic agent; Z88.8 Allergy status to other drugs, medicaments and biological substances

== ENCOUNTER 2018-10-07 22:14 | Inpatient (IN) | payer MEDICARE ==
[~2018-10-07] VITALS: Ht 165.1 cm; Wt 45.4 kg
[~2018-10-07 22:14] MED LIST changes: +MOME50SP; +MUPI2OI TOP; -OMEP20CA3 PO; +OMEP20CA4 PO; +SUCR1TAB56 PO; +VENTAER INH; +VITAD1000T PO; +VITMTA PO
[2018-10-07 23:40] LABS: BASO % 0.4 % (0.0-1.0); EOS # 0.4 10^3/uL (0.0-0.50); EOS % 5.8 % (0.0-3.0); HEMATOCRIT 36.7 % (36.0-47.0); HEMOGLOBIN 11.9 g/dl (12.0-15.5); LYMPH # 1.4 10^3/uL (1.5-4.5); LYMPH % 20.5 % (24.0-44.0); MEAN CORPUSCULAR HEMOGLOBIN 29.1 pg (27.0-33.0); MEAN CORPUSCULAR HGB CONC 32.4 g/dl (32.0-36.5); MEAN CORPUSCULAR VOLUME 89.7 fl (80.0-96.0); MONO # 0.5 10^3/uL (0.0-0.8); MONO % 6.9 % (0.0-5.0); NEUTROPHILS # 4.5 10^3/uL (1.8-7.7); NEUTROPHILS % 66.1 % (36.0-66.0); PLATELET COUNT, AUTOMATED 155 10^3/uL (150-450); RED BLOOD COUNT 4.09 10^6/uL (4.00-5.40); WHITE BLOOD COUNT 6.8 10^3/uL (4.0-10.0)
[2018-10-08 00:03] LABS: ALBUMIN 2.6 GM/DL (3.2-5.2); ALT/SGPT 19 U/L (12-78); BILIRUBIN,DIRECT 0.1 MG/DL (0.0-0.2); BILIRUBIN,TOTAL 0.4 MG/DL (0.2-1.0); BLOOD UREA NITROGEN 14 MG/DL (7-18); CARBON DIOXIDE LEVEL 36 MEQ/L (21-32); CHLORIDE LEVEL 97 MEQ/L (98-107); CK-MB VALUE MASS 1.6 NG/ML (<3.6); CPK CREATINE PHOSPHOKINASE 18 U/L (26-192); CREATININE FOR GFR 0.49 MG/DL (0.55-1.30); GLOMERULAR FILTRATION RATE > 60.0 (>39); GLUCOSE, FASTING 100 MG/DL (70-100); LIPASE 577 U/L (73-393); MB/CK RELATIVE INDEX 8.89 (< OR =4); NT-PRO BNP 266 PG/ML (<450); POTASSIUM SERUM 4.3 MEQ/L (3.5-5.1); SODIUM LEVEL 138 MEQ/L (136-145); TOTAL PROTEIN 6.1 GM/DL (6.4-8.2); TROPONIN I < 0.02 NG/ML (< 0.10)
[2018-10-08] MEDS ORDERED: ISOVUE-370 76% 100ML VIAL (Q9967) As Ordered ONE (00:16)
[2018-10-08] MEDS ORDERED: AZEL1SPR3 NARES (01:45)
--- NOTE | 2018-10-08 02:03 | REPVR ---
EXAM: CT Abdomen and Pelvis With Contrast EXAM DATE/TIME: 10/08/2018 12:14 AM CLINICAL HISTORY: 78 years old, female; Abdominal pain; Generalized; Additional Info: SOB, abd pain TECHNIQUE: Imaging protocol: Axial computed tomography images of the abdomen and pelvis with intravenous contrast. Coronal and sagittal reformatted images were created and reviewed. Radiation optimization: All CT scans at this facility use at least one of these dose optimization techniques: automated exposure control; mA and/or kV adjustment per patient size (includes targeted exams where dose is matched to clinical indication); or iterative reconstruction. Contrast material: ISOVUE 370;Contrast volume: 100 ml;Contrast route: IV; COMPARISON: No relevant prior studies available. FINDINGS: Lungs: Diffuse ground glass opacities with areas of sparing in the lung bases. Diffuse septal thickening. Liver: Normal. No mass. Gallbladder and bile ducts: Normal. No calcified stones. No ductal dilation. Pancreas: Normal. No ductal dilation. Spleen: Mild splenomegaly. Adrenals: Normal. No mass. Kidneys and ureters: Normal. No hydronephrosis. Stomach and bowel: No abnormal bowel dilatation. No abnormal bowel wall thickening. Copious stool throughout the colon. Negative for colonic diverticulitis. Appendix: Appendix is normal. Intraperitoneal space: Normal. No free air. No significant fluid collection. Vasculature: Severe atherosclerotic disease. No aortic aneurysm. Lymph nodes: Normal. No enlarged lymph nodes. Bladder: Unremarkable as visualized. Reproductive: Uterus is normal. Bones/joints: Severe degenerative spine. No acute fracture. Soft tissues: Unremarkable. IMPRESSION: 1. No findings to suggest source of abdominal pain on CT. 2. Diffuse ground glass opacities and septal thickening in the lung bases. See CTA chest report. 3. Additional findings as described. Electronically signed by: Yves Mejía On 10/08/2018 02:03:00 AM
--- NOTE | 2018-10-08 02:13 | REPVR ---
EXAM: CT Angiography Chest With Contrast EXAM DATE/TIME: 10/08/2018 12:14 AM CLINICAL HISTORY: 78 years old, female; Shortness of breath; Additional Info: SOB, abd pain. Pulmonary fibrosis. TECHNIQUE: Imaging protocol: Axial computed tomographic angiography images of the chest with intravenous contrast using CT angiography protocol. Coronal and sagittal reformatted images were created and reviewed. 3D rendering: MIP reconstructed images were created and reviewed. Radiation optimization: All CT scans at this facility use at least one of these dose optimization techniques: automated exposure control; mA and/or kV adjustment per patient size (includes targeted exams where dose is matched to clinical indication); or iterative reconstruction. Contrast material: ISOVUE 370;Contrast volume: 100 ml;Contrast route: IV; COMPARISON: CT Chest without contrast 05/26/2017 1:45:[address] ANGIO CHEST 08/20/2018 10:48 AM FINDINGS: Limitations: Examination is limited by motion artifact. Pulmonary arteries: Normal. No pulmonary emboli. Great vessels off aortic arch: Moderate to severe focal stenosis of the origin of the left subclavian artery. Aorta: Moderate atherosclerotic disease. No aortic aneurysm. Lungs: Extensive groundglass opacities with areas of air-trapping. Diffuse septal thickening. There are multifocal areas of peripheral honeycombing. No significant bronchiectasis. Pleural space: Unremarkable. No pneumothorax. No pleural effusion. Heart: Mild cardiomegaly. No pericardial effusion. Coronary arteries: Moderate coronary artery calcification. Lymph nodes: Mediastinal lymphadenopathy. Bones/joints: Mild degenerative spine. No acute fracture. Soft tissues: Unremarkable. IMPRESSION: 1. Negative for pulmonary embolism. 2. Extensive groundglass opacities and septal thickening. There are multifocal areas of peripheral honeycombing. Unchanged from 08/10 and increased from 06/09. Findings suggest acute on chronic fibrosis. Correlate clinically. 3. Mediastinal lymphadenopathy. No change from prior. 4. Moderate to severe focal stenosis of the origin of the left subclavian artery. 5. Additional findings as described. 21 Electronically signed by: Yves Mejía On 10/08/2018 02:13:03 AM
[2018-10-08] MEDS ORDERED: methylPREDNISolone INJ 125 MG/2 ML VIAL (J2930) IV ONE (02:45)
[2018-10-08] MEDS ORDERED: ACETAMINOPHEN TAB 650MG DOSE (2X325MG) PO PRN (03:00)
[2018-10-08] MEDS ORDERED: AMLO5TAB6 PO (03:11)
[2018-10-08] MEDS ORDERED: TYLE650T35 PO (03:11)
--- NOTE | 2018-10-08 03:50 | HPEPDOC ---
[facility] Medical History & Physical Date of Admission Oct 08, 2018 Date of Service: Oct 08, 2018 Attending Physician: FRANCI ZAPATA MD History and Physical CHIEF COMPLAINT: Shortness of breath HISTORY OF PRESENT ILLNESS: This is a 78-year-old female with a history of COPD and end-stage pulmonary fibrosis. Patient is on home O2 at 3 L and usually would titrate oxygen up to 5 L. if if Saturation falls in the 80s. Patient was having some shortness of breath for the past 1 week with saturation in the 80s and has been titrate oxygen to 5 L but barely make it to the 90s. Today, her saturation dropped to 69% As per daughter and with titration her saturation remained in the 70s with 5 L.. She was then brought to the ER for further evaluation. She received Solu-Medrol and nebulization treatment and right now she is on 3 L nasal cannula and saturation at 95% but still short of breath. Patient was having some chest tightness secondary to the low saturation and shortness of breath. Now, her chest tightness has improved and, pain, or edema, shortness of breath now. We'll admit for acute on chronic respiratory failure and hypoxemia. PAST MEDICAL HISTORY: 1. Chronic respiratory failure, and O2 2. Chronic COPD, O2 dependent 3. End-stage chronic fibrosis 4. Hypertension 5. GERD 7. PAD 8. Vitamin D deficiency SOCIAL HISTORY: Former smoker but quit smoking. Denied alcohol or drug use at present time and lives at home FAMILY HISTORY: Reviewed and noncontributory ALLERGIES: Please see below. REVIEW OF SYSTEMS: Positive for shortness of breath. Positive for wheezing. Positive for chest tightness. This. The rest of the 12 point review of systems normal HOME MEDICATIONS: Please see below. PHYSICAL EXAMINATION: VITAL SIGNS: Please see vital signs below GENERAL APPEARANCE: Patient seen on O2 with mild distress HEENT: Unremarkable CARDIOVASCULAR: S1, S2, regular. LUNGS: Bilateral air entry with mild wheezing, diminished at bases ABDOMEN: Soft, positive bowel sounds, nontender MUSCULOSKELETAL: Moving all extremities EXTREMITIES: 2+ posterior extremity and trace edema NEUROLOGICAL: She is alert and 3, nonfocal, gram-negative, and tach PSYCHIATRIC: She has some mild anxiety LABORATORY DATA: See below.POC pH (Misc Panel) 7.401, POC Base Excess (Misc Panel) 11.0H, POC Saturated Percent O2 (Misc) 95, POC pO2 (Misc Panel) 81.0, POC pCO2 (Misc Panel) 57.1H, POC HCO3 (Misc Panel) 35.4H, POC Total CO2 (Misc Panel) 37.0H IMAGING: I reviewed chest x-ray. It showed numerous patchy bilateral lungs. Official result to follow Also reviewed EKG showed normal sinus rhythm, rate 66 MICROBIOLOGY: Please see below. ASSESSMENT/PLAN 1. Acute on chronic respiratory failure with hypoxemia. Solu-Medrol IV and DuoNeb's and pulmonary consult 2. COPD with acute exacerbation Same as #1 3. Chest tightness secondary to COPD exacerbation and hypoxemia Patient now symptom has improved 4. End-stage renal eye fibrosis flare up Solu-Medrol and pulmonary consult. 5. Hypertension; blood pressure was high when she came in, so we will continue 2. Monitor her pressure and add medication if needed. Otherwise Continue present medications. 5. GERD Continue medication 6. Vitamin D deficiency 7. PAD Will add heparin subcutaneous for DVT prophylaxis. Patient is stable at present, and saturation is in the 90s on 3 L.. Discussed with family at bedside and also with hospitalist, . Medication will be reconciled. Time spent 45 minutes Vital Signs Vital Signs Date Time Temp Pulse Resp B/P (MAP) Pulse Ox O2 Delivery O2 Flow Rate FiO2 10/08/18 02:30 83 192/84 (120) 94 10/07/18 23:45 22 10/07/18 22:36 Nasal Cannula 3.0 10/07/18 22:35 95.9 Laboratory Data Labs 24H Laboratory Tests 2 10/07/18 23:24: POC pH (Misc Panel) 7.401, POC Base Excess (Misc Panel) 11.0H, POC Saturated Percent O2 (Misc) 95, POC pO2 (Misc Panel) 81.0, POC pCO2 (Misc Panel) 57.1H, POC HCO3 (Misc Panel) 35.4H, POC Total CO2 (Misc Panel) 37.0H 10/07/18 23:25: Immature Granulocyte % (Auto) 0.3, White Blood Count 6.8, Red Blood Count 4.09, Hemoglobin 11.9L, Hematocrit 36.7, Mean Corpuscular Volume 89.7, Mean Corpuscular Hemoglobin 29.1, Mean Corpuscular Hemoglobin Concent 32.4, Red Cell Distribution Width 13.7, Platelet Count 155, Neutrophils (%) (Auto) 66.1H, Lymphocytes (%) (Auto) 20.5L, Monocytes (%) (Auto) 6.9H, Eosinophils (%) (Auto) 5.8H, Basophils (%) (Auto) 0.4, Neutrophils # (Auto) 4.5, Lymphocytes # (Auto) 1.4L, Monocytes # (Auto) 0.5, Eosinophils # (Auto) 0.4, Basophils # (Auto) 0.0, Nucleated Red Blood Cells % (auto) 0.0, Anion Gap 5L, Glomerular Filtration Rate > 60.0, Lactic Acid Level 0.6, Calcium Level 9.0, Aspartate Amino Transf (AST/SGOT) 17, Alanine Aminotransferase (ALT/SGPT) 19, Alkaline Phosphatase 65, Total Bilirubin 0.4, Direct Bilirubin 0.1, Total Creatine Kinase 18L, Creatine Kinase MB 1.6, Creatine Kinase MB Relative Index 8.89H, Troponin I < 0.02, OF-Blk-D-Type Natriuretic Peptide 266, Total Protein 6.1L, Albumin 2.6L, Albumin/Globulin Ratio 0.74L, Lipase 577H CBC/BMP Laboratory Tests 10/07/18 23:25 Red Blood Count 4.09, Mean Corpuscular Volume 89.7, Mean Corpuscular Hemoglobin 29.1, Mean Corpuscular Hemoglobin Concent 32.4, Red Cell Distribution Width 13.7 , Neutrophils (%) (Auto) 66.1 H, Lymphocytes (%) (Auto) 20.5 L, Monocytes (%) (Auto) 6.9 H, Eosinophils (%) (Auto) 5.8 H, Basophils (%) (Auto) 0.4, Neutrophils # (Auto) 4.5, Lymphocytes # (Auto) 1.4 L, Monocytes # (Auto) 0.5, Eosinophils # (Auto) 0.4, Basophils # (Auto) 0.0 Microbiology Microbiology 10/07/18 Blood Culture, Received Pending 10/07/18 Blood Culture, Received Pending Home Medications Scheduled Amlodipine Besylate (Amlodipine Besylate) 5 Mg Tablet, 2.5 MG PO QHS Aspirin (Aspirin EC) 81 Mg Tab, 81 MG PO DAILY Azelastine HCl (Azelastine HCl) 0.1% [place].pump, 1 SPRAY NARES BID Calcium Carbonate/Vitamin D3 (Calcium 600-Vit D3 800 Tablet) 1 Tab Tab, 1 TAB PO DAILY Cyanocobalamin (Vitamin B-12) (Vitamin B-12) 1,000 Mcg Tab, 1,000 MCG PO DAILY Losartan Potassium (Cozaar) 100 Mg Tab, 100 MG PO DAILY Magnesium Chloride (Mag64) 64 Mg Tablet.dr, 128 MG PO QAM Magnesium Chloride (Mag64) 64 Mg Tablet.dr, 64 MG PO QHS Metoprolol Tartrate (Metoprolol Tartrate) 100 Mg Tab, 100 MG PO BID Multivitamins (Thera M Plus Tablet) 1 Each Tablet, 1 TAB PO DAILY Omeprazole (Omeprazole) 20 Mg Cap, 20 MG PO BID Potassium Chloride (Potassium Chloride) 20 Meq Tab, 20 MEQ PO QPM CRUSHED IN APPLESAUCE AFTER DINNER Prednisone (Prednisone) 5 Mg Tab, 7.5 MG PO DAILY Spironolactone (Spironolactone) 25 Mg Tab, 12.5 MG PO QHS Sucralfate (Sucralfate) 1 Gm Tablet, 1 GM PO BID Vitamin D (Vitamin D3) 1,000 Unit Tablet, 1,000 UNITS PO DAILY Scheduled PRN Acetaminophen (Tylenol Arthritis) 650 Mg Tablet.er, 650 MG PO Q8H PRN for PAIN Albuterol Sulf (Albuterol Sulfate) 2.5 Mg/3 Ml Nebu, 1 GAURI INH QID PRN for SOB/WHEEZING SCHEDULED AT 0900, 1500, AND 2100; ADDITIONAL IN EVENING PRN Albuterol Sulfate (Ventolin Hfa) 18 Gm Hfa.aer.ad, 2 PUFF INH Q6H PRN for SHORTNESS OF BREATH Mometasone Furoate Monohydrate (Nasonex) 17 Gm [place].pump, 1 SPRAY NA DAILY PRN for ALLERGIES Allergies Coded Allergies: hydrochlorothiazide (Verified Allergy, Intermediate, Pancytopenia, 10/07/18) isradipine (Verified Allergy, Mild, edema, 10/07/18) SUNITA Inhibitors (Verified Adverse Reaction, Unknown, Cough, 08/20/18) aspirin (Verified Adverse Reaction, Unknown, Causes platelets to drop, 08/20/18) A-FIB/CHADSVASC A-FIB History Current/History of A-Fib/PAF?: No Current PO Anticoag Therapy: No JOAQUÍN GRACE PA-C Oct 08, 2018 03:50
[2018-10-08] MEDS: HEPARIN SOD (PORCINE) 5000 UNITS/ML VIAL SC SCH ×3 (05:46→20:48)
--- NOTE | 2018-10-08 05:48 | ECGEPIP ---
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
[2018-10-08] MEDS ORDERED: ALBUTEROL 90 MCG/ACT 8GM HFA INHALER INH PRN (06:45)
[2018-10-08] MEDS ORDERED: FLUTICASONE PROP 0.05% NASAL SPRAY 16 GM (FLONASE) PRN (06:45)
[2018-10-08] MEDS: IPRATROPIUM 0.5MG/ALBUTEROL 2.5MG INH SOL UD 3ML (DUONEB)(J7620) NEB SCH ×4 (07:22→21:22)
[2018-10-08 08:16] LABS: VENOUS BASE EXCESS 7.2 (-2.0-2.0); VENOUS HCO3 34.3 MEQ/L (23.0-27.0); VENOUS O2 SATURATION 98.2 % (60.0-80.0); VENOUS PARTIAL PRESSURE CO2 59.3 mmHg (38.0-50.0); VENOUS PARTIAL PRESSURE O2 108.1 mmHg (30.0-50.0); VENOUS TOTAL CO2 36.1 MEQ/L (24.0-28.0)
[2018-10-08 08:20] LABS: HEMATOCRIT 41.6 % (36.0-47.0); HEMOGLOBIN 13.7 g/dl (12.0-15.5); MEAN CORPUSCULAR HEMOGLOBIN 29.8 pg (27.0-33.0); MEAN CORPUSCULAR HGB CONC 32.9 g/dl (32.0-36.5); MEAN CORPUSCULAR VOLUME 90.6 fl (80.0-96.0); PLATELET COUNT, AUTOMATED 157 10^3/uL (150-450); RED BLOOD COUNT 4.59 10^6/uL (4.00-5.40)
[2018-10-08 08:42] LABS: BLOOD UREA NITROGEN 11 MG/DL (7-18); CALCIUM LEVEL 9.5 MG/DL (8.8-10.2); CARBON DIOXIDE LEVEL 36 MEQ/L (21-32); CHLORIDE LEVEL 95 MEQ/L (98-107); CREATININE FOR GFR 0.41 MG/DL (0.55-1.30); GLOMERULAR FILTRATION RATE > 60.0 (>39); GLUCOSE, FASTING 169 MG/DL (70-100); POTASSIUM SERUM 3.8 MEQ/L (3.5-5.1); SODIUM LEVEL 137 MEQ/L (136-145)
[2018-10-08] MEDS: VITAMIN D 1,000 INTERNATIONAL UNITS TABLET PO SCH (09:41)
[2018-10-08] MEDS: ASPIRIN 81 MG ENTERIC TAB PO SCH (09:41)
[2018-10-08] MEDS: METOPROLOL TARTRATE 100 MG TAB PO SCH ×2 (09:44→20:53)
[2018-10-08] MEDS: CYANOCOBALAMIN 500 MCG TAB PO SCH (09:45)
[2018-10-08] MEDS: OMEPRAZOLE 20 MG CAP PO SCH ×2 (09:46→20:48)
[2018-10-08] MEDS: LOSARTAN 50 MG TAB PO SCH (09:46)
--- NOTE | 2018-10-08 10:39 | REP ---
AP PORTABLE CHEST: 10/07/2018. Comparison: AP portable chest 08/20/2018, CT 08/20/2018. Clinical history: Dyspnea and cough. Findings: Extensive chronic interstitial fibrotic change with other coarsened interstitial markings. Increased density in the right base and elsewhere in the lungs suggest superimposed acute on chronic changes. I could not exclude acute infiltrates or edema. However no gross effusion. Bullous changes seen throughout. Heart size enlarged with left atrial enlargement and the aorta is calcified and tortuous, it has no change in contour. Airway intact. Bones demineralized. Impression: 1. Extensive interstitial fibrosis with honeycombing bullous emphysematous changes and diffuse opacities which appear increased, possibly superimposed infiltrate or edema on the extensive chronic fibrosis. 2. Cardiomegaly with left atrial enlargement, tortuous calcified aorta and no gross effusion. Electronically Signed by Chauncey Marshall MD 10/08/2018 09:48 P
[2018-10-08] MEDS: methylPREDNISolone INJ 125 MG/2 ML VIAL (J2930) IV SCH ×2 (13:03→20:48)
--- NOTE | 2018-10-08 13:15 | IPN ---
DATE OF VISIT: 10/08/2018 I was asked to see Amy Brown here during this hospitalization. She is well known to the service as she is a patient of Dr. Maynard. She is known to have essentially end stage fibrosis, underlying obstructive lung disease, emphysema and chronic hypoxemic respiratory failure. She is a known DO NOT RESUSCITATE/DO NOT INTUBATE (DNR/DNI). She is chronically on prednisone 7 mg daily. She was admitted to the hospital on this occasion with increasing shortness of breath over the last several days with worsening of her oxygenation status with activity. She had some intermittent chest tightness. She is currently feeling a little better. She has been treated with high dose steroids. She denies any fevers or chills. She has got some minimal sputum production. She has been afebrile since admission with temperature 96. Blood pressure varied from 130 to 212. Heart rate generally in the 90s. She is currently 96% saturated on 5 liters nasal cannula flow. Chest x-ray and CT scan show no change in her known severe fibrosis. No acute infiltrates. Other laboratories show a white blood cell count of 8.0, hemoglobin 13.7 and platelet count 157,000. Sodium 137, potassium 3.8, chloride 95, CO2 36, BUN 11, creatinine 0.41. Blood gas done with a venous draw at 8:11 this morning on an unknown oxygen flow shows a pH of 7.38, pCO2 59.3 and paO2 of 108. On exam, she is awake, alert and appropriate. Vital signs as outlined above. HEENT: Otherwise normocephalic, atraumatic. Pupils do react. Neck is supple. Trachea is in the midline. Chest shows diminished, but symmetric expansion. Diffuse ruelas expiratory crackles are noted. No wheeze. There may be some intermittent areas of egophony. No rubs. Cardiac exam generally regular. I do believe there is a systolic murmur. Second heart sound is prominent. Peripheral pulses diminished, but palpable. Trace edema at best. Abdomen soft, nontender, with active bowel sounds. No convincing organomegaly or masses. Extremities without cyanosis or clubbing. Neurologically, she is awake, alert and appropriate. Psych with general affect. IMPRESSION: 1. Pulmonary fibrosis, end stage. 2. Advanced obstructive lung disease. 3. Chronic hypoxemic respiratory failure, multifactorial. 4. DNR/DNI status. 5. Chronic high risk medications/prednisone. RECOMMENDATIONS: At this point, her DNR/DNI status needs to be documented as she currently does not have a bracelet in place. I did reconfirm this with her and this should be done through the primary service. She is feeling better on high dose steroids. She has responded intermittently as well in the past to gentle diuresis and will see how that goes over the next several days. At this point, will continue as outlined above. Further recommendations will be made in the progress record as new information becomes available. TREMAYNE
[2018-10-08 20:00] VITALS: BP 160/58
[2018-10-08] MEDS: SPIRONOLACTONE 12.5MG PER 1/2 TABLET PO SCH (20:47)
[2018-10-08] MEDS: MAGNESIUM CHLORIDE 64 MG TABCR (SLO MAG) PO SCH (20:47)
[2018-10-08] MEDS: amLODIPine 5 MG TAB PO SCH (20:53)
[2018-10-09] VITALS (12 sets, daily range): BP systolic 112–148; BP diastolic 57–65; O2SAT 97–100
[2018-10-09] MEDS: methylPREDNISolone INJ 125 MG/2 ML VIAL (J2930) IV SCH ×3 (04:09→21:03)
[2018-10-09] MEDS: HEPARIN SOD (PORCINE) 5000 UNITS/ML VIAL SC SCH ×3 (05:29→21:03)
[2018-10-09 07:55] LABS: ALBUMIN 2.4 GM/DL (3.2-5.2); ALT/SGPT 18 U/L (12-78); BILIRUBIN,TOTAL 0.2 MG/DL (0.2-1.0); BLOOD UREA NITROGEN 20 MG/DL (7-18); CALCIUM LEVEL 9.7 MG/DL (8.8-10.2); CARBON DIOXIDE LEVEL 39 MEQ/L (21-32); CHLORIDE LEVEL 98 MEQ/L (98-107); CREATININE FOR GFR 0.44 MG/DL (0.55-1.30); GLOMERULAR FILTRATION RATE > 60.0 (>39); GLUCOSE, FASTING 147 MG/DL (70-100); POTASSIUM SERUM 4.7 MEQ/L (3.5-5.1); SODIUM LEVEL 139 MEQ/L (136-145); TOTAL PROTEIN 6.5 GM/DL (6.4-8.2)
[2018-10-09] MEDS: ASPIRIN 81 MG ENTERIC TAB PO SCH (08:47)
[2018-10-09] MEDS: METOPROLOL TARTRATE 100 MG TAB PO SCH ×2 (08:47→21:02)
[2018-10-09] MEDS: IPRATROPIUM 0.5MG/ALBUTEROL 2.5MG INH SOL UD 3ML (DUONEB)(J7620) NEB SCH ×4 (08:47→20:22)
[2018-10-09] MEDS: OMEPRAZOLE 20 MG CAP PO SCH ×2 (08:47→21:01)
[2018-10-09] MEDS: VITAMIN D 1,000 INTERNATIONAL UNITS TABLET PO SCH (08:47)
[2018-10-09] MEDS: CYANOCOBALAMIN 500 MCG TAB PO SCH (08:48)
[2018-10-09] MEDS: LOSARTAN 50 MG TAB PO SCH (08:48)
[2018-10-09] MEDS: SUCRALFATE 1 GM TAB PO SCH ×2 (18:24→21:01)
[2018-10-09] MEDS: SPIRONOLACTONE 12.5MG PER 1/2 TABLET PO SCH (21:01)
[2018-10-09] MEDS: amLODIPine 5 MG TAB PO SCH (21:01)
[2018-10-09] MEDS: MAGNESIUM CHLORIDE 64 MG TABCR (SLO MAG) PO SCH (21:02)
[2018-10-10] VITALS (17 sets, daily range): BP systolic 123–168; BP diastolic 56–70; O2SAT 89–100
[2018-10-10] MEDS: methylPREDNISolone INJ 125 MG/2 ML VIAL (J2930) IV SCH ×3 (03:47→20:43)
[2018-10-10] MEDS: HEPARIN SOD (PORCINE) 5000 UNITS/ML VIAL SC SCH ×4 (06:00→22:00)
[2018-10-10] MEDS: SUCRALFATE 1 GM TAB PO SCH ×4 (07:50→20:45)
[2018-10-10] MEDS: IPRATROPIUM 0.5MG/ALBUTEROL 2.5MG INH SOL UD 3ML (DUONEB)(J7620) NEB SCH ×4 (07:58→20:11)
[2018-10-10] MEDS: METOPROLOL TARTRATE 100 MG TAB PO SCH ×2 (09:13→20:44)
[2018-10-10] MEDS: ASPIRIN 81 MG ENTERIC TAB PO SCH (09:13)
[2018-10-10] MEDS: VITAMIN D 1,000 INTERNATIONAL UNITS TABLET PO SCH (09:13)
[2018-10-10] MEDS: LOSARTAN 50 MG TAB PO SCH (09:13)
[2018-10-10] MEDS: OMEPRAZOLE 20 MG CAP PO SCH ×2 (09:14→20:44)
[2018-10-10] MEDS: CYANOCOBALAMIN 500 MCG TAB PO SCH (09:14)
[2018-10-10 10:44] LABS: HEMATOCRIT 37.1 % (36.0-47.0); HEMOGLOBIN 11.7 g/dl (12.0-15.5); MEAN CORPUSCULAR HEMOGLOBIN 29.8 pg (27.0-33.0); MEAN CORPUSCULAR HGB CONC 31.5 g/dl (32.0-36.5); MEAN CORPUSCULAR VOLUME 94.6 fl (80.0-96.0); PLATELET COUNT, AUTOMATED 187 10^3/uL (150-450); RED BLOOD COUNT 3.92 10^6/uL (4.00-5.40)
[2018-10-10 11:09] LABS: BLOOD UREA NITROGEN 30 MG/DL (7-18); CALCIUM LEVEL 9.4 MG/DL (8.8-10.2); CARBON DIOXIDE LEVEL 37 MEQ/L (21-32); CHLORIDE LEVEL 97 MEQ/L (98-107); CREATININE FOR GFR 0.64 MG/DL (0.55-1.30); GLOMERULAR FILTRATION RATE > 60.0 (>39); GLUCOSE, FASTING 252 MG/DL (70-100); POTASSIUM SERUM 3.8 MEQ/L (3.5-5.1); SODIUM LEVEL 139 MEQ/L (136-145)
--- NOTE | 2018-10-10 13:15 | IPN ---
DATE OF VISIT: 10/10/2018 I again attended Amy Brown. She is awake, alert and appropriate. She is quite comfortable at the moment. She is on her 3 liters nasal cannula with saturations that run 91-97% depending upon activity. T-max overnight 97.3, blood pressure 120s to 160s systolic, heart rate 70-90s with a sinus mechanism. Respiratory rate is in the teens to low 20s without accessory muscle use. No new laboratories. On exam, she is awake, alert and appropriate, and quite comfortable. Pupils reactive, sclera clear. Trachea is midline. Chest diminished, but symmetric expansion. Her diffuse ruelas-inspiratory crackles more marked posteriorly are noted. No convincing egophony, rubs or wheezes. Cardiac exam is regular. Peripheral pulses palpable, no edema. Abdomen is soft with active bowel sounds. No convincing organomegaly or masses. Extremities no cyanosis or clubbing. Neurologically, she is awake, alert and appropriate. Psych good mood and affect. No other new diagnostic information. IMPRESSION: 1. End stage pulmonary fibrosis. 2. Chronic hypoxemic respiratory failure, multifactorial. 3. Underlying obstructive lung disease. 4. Bronchiectasis. 5. Steroid dependence. 6. DNR/DNI status. RECOMMENDATIONS: At this point, we will change her to oral steroids. My hope is in the next several days she will be able to be discharged. She has not required antimicrobials. I believe her fluid status is adequate at this point. We will follow her as needed. She is followed in the outpatient setting quite closely by Dr. Maynard and should be seen several weeks post discharge. I would suggest weaning her prednisone over the next several weeks back to her baseline of 7-10 mg daily. Further recommendations will be made in the progress record as new information becomes available. TREMAYNE
[2018-10-10] MEDS ORDERED: SLF 3 ML SYR IV PRN (14:45)
[2018-10-10] MEDS: MAGNESIUM CHLORIDE 64 MG TABCR (SLO MAG) PO SCH (20:44)
[2018-10-10] MEDS: amLODIPine 5 MG TAB PO SCH (20:44)
[2018-10-10] MEDS: SPIRONOLACTONE 12.5MG PER 1/2 TABLET PO SCH (20:44)
--- NOTE | 2018-10-10 22:10 | IPNPDOC ---
Text Note Date of Service The patient was seen on 10/10/18. NOTE Subjective: Patient complains of mild shortness of breath, and weakness. Patient states at that her shortness of breath improved today Objective: General:NAD HEENT: PERRLA, EOMI CV: S1S2 Lungs: Diminished lung sounds bilaterally Abdomen: Nontender nondistended Extr: No swelling no cyanosis Neuro: Nonfocal Assessment and plan: Patient is 78 years old female with past medical history of End-stage pulmonary fibrosis, chronic hypoxemic respiratory failure, COPD, bronchiectasis presented to the hospital with increased shortness of breath and weakness 1. End stage pulmonary fibrosis. Follow-up with senior enlisted advisor Palliative care consult Route Sales Person recommended to discontinue antibiotic 2. Chronic hypoxemic respiratory failure, multifactorial. Continue oxygen therapy. She is on her baseline 3 L of oxygen Continue steroids PO, taper down to her home dose of 10 mg 3. Underlying obstructive lung disease. Continue incentive spirometer and respiratory treatment 4. Bronchiectasis. respiratory treatment 5. Steroid dependence. Continue steroids 6. DNR/DNI status. VS,Ayesha, I+O VS, Lindsaye, I+O Laboratory Tests 10/10/18 10:03 Red Blood Count 3.92 L, Mean Corpuscular Volume 94.6, Mean Corpuscular Hemoglobi n 29.8, Mean Corpuscular Hemoglobin Concent 31.5 L, Red Cell Distribution Width 13.6, Calcium Level 9.4 Vital Signs Date Time Temp Pulse Resp B/P (MAP) Pulse Ox O2 Delivery O2 Flow Rate FiO2 10/10/18 20:44 85 141/65 10/10/18 20:00 97.6 16 96 3.0 10/10/18 16:00 Nasal Cannula I&O- Last 24 Hours up to 6 AM 10/10/18 05:59 Intake Total 240 ml Output Total 200 ml Balance 40 ml AGUSTÍN OCHOA DO Oct 10, 2018 22:10
[2018-10-10] MEDS: SLF 3 ML SYR IV SCH (22:39)
[2018-10-10 22:57] LABS: BLOOD UREA NITROGEN 27 MG/DL (7-18); CALCIUM LEVEL 9.4 MG/DL (8.8-10.2); CARBON DIOXIDE LEVEL 38 MEQ/L (21-32); CHLORIDE LEVEL 102 MEQ/L (98-107); CREATININE FOR GFR 0.63 MG/DL (0.55-1.30); GLOMERULAR FILTRATION RATE > 60.0 (>39); GLUCOSE, FASTING 212 MG/DL (70-100); POTASSIUM SERUM 3.8 MEQ/L (3.5-5.1); SODIUM LEVEL 141 MEQ/L (136-145)
[2018-10-11] VITALS (24 sets, daily range): BP systolic 124–166; BP diastolic 60–78; O2SAT 91–100
[2018-10-11 04:37] LABS: HEMATOCRIT 36.8 % (36.0-47.0); HEMOGLOBIN 11.5 g/dl (12.0-15.5); MEAN CORPUSCULAR HEMOGLOBIN 28.7 pg (27.0-33.0); MEAN CORPUSCULAR HGB CONC 31.3 g/dl (32.0-36.5); MEAN CORPUSCULAR VOLUME 91.8 fl (80.0-96.0); PLATELET COUNT, AUTOMATED 186 10^3/uL (150-450); RED BLOOD COUNT 4.01 10^6/uL (4.00-5.40); WHITE BLOOD COUNT 8.4 10^3/uL (4.0-10.0)
[2018-10-11 04:57] LABS: BLOOD UREA NITROGEN 27 MG/DL (7-18); CALCIUM LEVEL 9.4 MG/DL (8.8-10.2); CARBON DIOXIDE LEVEL 38 MEQ/L (21-32); CHLORIDE LEVEL 100 MEQ/L (98-107); GLOMERULAR FILTRATION RATE > 60.0 (>39); GLUCOSE, FASTING 141 MG/DL (70-100); MAGNESIUM LEVEL 1.7 MG/DL (1.8-2.4); POTASSIUM SERUM 3.8 MEQ/L (3.5-5.1); SODIUM LEVEL 141 MEQ/L (136-145)
[2018-10-11] MEDS: HEPARIN SOD (PORCINE) 5000 UNITS/ML VIAL SC SCH ×3 (06:00→21:25)
[2018-10-11] MEDS: SLF 3 ML SYR IV SCH ×3 (06:07→21:24)
[2018-10-11] MEDS: IPRATROPIUM 0.5MG/ALBUTEROL 2.5MG INH SOL UD 3ML (DUONEB)(J7620) NEB SCH ×4 (07:31→18:10)
[2018-10-11] MEDS: VITAMIN D 1,000 INTERNATIONAL UNITS TABLET PO SCH (08:12)
[2018-10-11] MEDS: SUCRALFATE 1 GM TAB PO SCH ×4 (08:12→21:00)
[2018-10-11] MEDS: ASPIRIN 81 MG ENTERIC TAB PO SCH (08:13)
[2018-10-11] MEDS: METOPROLOL TARTRATE 100 MG TAB PO SCH ×2 (08:14→21:22)
[2018-10-11] MEDS: OMEPRAZOLE 20 MG CAP PO SCH ×2 (08:14→21:24)
[2018-10-11] MEDS: CYANOCOBALAMIN 500 MCG TAB PO SCH (08:15)
[2018-10-11] MEDS: LOSARTAN 50 MG TAB PO SCH (08:15)
[2018-10-11] MEDS ORDERED: predniSONE 10 MG TAB PO SCH (09:00)
[2018-10-11] MEDS ORDERED: predniSONE 20 MG TAB PO SCH (09:00)
[2018-10-11 10:27] LABS: BLOOD UREA NITROGEN 25 MG/DL (7-18); CALCIUM LEVEL 9.1 MG/DL (8.8-10.2); CARBON DIOXIDE LEVEL 37 MEQ/L (21-32); CHLORIDE LEVEL 98 MEQ/L (98-107); CREATININE FOR GFR 0.54 MG/DL (0.55-1.30); GLOMERULAR FILTRATION RATE > 60.0 (>39); GLUCOSE, FASTING 212 MG/DL (70-100); POTASSIUM SERUM 3.5 MEQ/L (3.5-5.1); SODIUM LEVEL 139 MEQ/L (136-145)
[2018-10-11 16:48] LABS: BLOOD UREA NITROGEN 26 MG/DL (7-18); CALCIUM LEVEL 9.1 MG/DL (8.8-10.2); CARBON DIOXIDE LEVEL 39 MEQ/L (21-32); CHLORIDE LEVEL 99 MEQ/L (98-107); CREATININE FOR GFR 0.47 MG/DL (0.55-1.30); GLOMERULAR FILTRATION RATE > 60.0 (>39); GLUCOSE, FASTING 135 MG/DL (70-100); SODIUM LEVEL 141 MEQ/L (136-145)
--- NOTE | 2018-10-11 18:37 | IPNPDOC ---
Text Note Date of Service The patient was seen on 10/11/18. NOTE Subjective: Patient states that her shortness of breath improved today. She is in her baseline 3 L of oxygen Objective: General:NAD HEENT: PERRLA, EOMI CV: S1S2 Lungs: Diminished lung sounds bilaterally Abdomen: Nontender nondistended Extr: No swelling no cyanosis Neuro: Nonfocal Assessment and plan: Patient is 78 years old female with past medical history of End-stage pulmonary fibrosis, chronic hypoxemic respiratory failure, COPD, bronchiectasis presented to the hospital with increased shortness of breath and weakness. Patient received treatment with steroids and antibiotics. After treatment her breathing improved and she is in her baseline 3 L of oxygen. Continue steroids PO, taper down to her home dose of 7 mg. Await disposition. No family support at home. SNF is an option [address] End stage [address] Lindsay recommended treatment in the outpatient settings Palliative care consult Lapper recommended to discontinue antibiotic 2. Chronic hypoxemic respiratory failure, multifactorial. Continue oxygen therapy. She is on her baseline 3 L of oxygen Continue steroids PO, taper down to her home dose of 7 mg 3. Underlying obstructive lung disease. Continue incentive spirometer and respiratory treatment 4. Bronchiectasis. respiratory treatment 5. Steroid dependence. Continue steroids 6. DNR/DNI status. VS,Fishbone, I+O VS, Fishbone, I+O Laboratory Tests 10/10/18 22:27 Calcium Level 9.4 10/11/18 04:09 Calcium Level 9.4, Red Blood Count 4.01, Mean Corpuscular Volume 91.8, Mean Corpuscular Hemoglobin 28.7, Mean Corpuscular Hemoglobin Concent 31.3 L, Red Cell Distribution Width 13.5 10/11/18 09:47 Calcium Level 9.1 10/11/18 16:08 Calcium Level 9.1 Vital Signs Date Time Temp Pulse Resp B/P (MAP) Pulse Ox O2 Delivery O2 Flow Rate FiO2 10/11/18 16:00 97.0 75 18 135/66 (89) 99 3.0 10/11/18 16:00 Nasal Cannula I&O- Last 24 Hours up to 6 AM 10/11/18 06:00 Intake Total 780 ml Output Total 230 ml Balance 550 ml AGUSTÍN OCHOA DO Oct 11, 2018 18:37
[2018-10-11] MEDS: SPIRONOLACTONE 12.5MG PER 1/2 TABLET PO SCH (21:22)
[2018-10-11] MEDS: amLODIPine 5 MG TAB PO SCH (21:23)
[2018-10-11] MEDS: MAGNESIUM CHLORIDE 64 MG TABCR (SLO MAG) PO SCH (21:31)
[2018-10-12] VITALS (23 sets, daily range): BP systolic 127–178; BP diastolic 60–84; O2SAT 96–100
[2018-10-12] MEDS: HEPARIN SOD (PORCINE) 5000 UNITS/ML VIAL SC SCH ×3 (05:03→21:09)
[2018-10-12] MEDS: SLF 3 ML SYR IV SCH ×3 (05:06→21:11)
[2018-10-12] MEDS: IPRATROPIUM 0.5MG/ALBUTEROL 2.5MG INH SOL UD 3ML (DUONEB)(J7620) NEB SCH ×4 (06:07→20:40)
[2018-10-12] MEDS: SUCRALFATE 1 GM TAB PO SCH ×4 (08:19→21:00)
[2018-10-12] MEDS: METOPROLOL TARTRATE 100 MG TAB PO SCH ×2 (08:19→21:10)
[2018-10-12] MEDS: ASPIRIN 81 MG ENTERIC TAB PO SCH (08:20)
[2018-10-12] MEDS: VITAMIN D 1,000 INTERNATIONAL UNITS TABLET PO SCH (08:20)
[2018-10-12] MEDS: LOSARTAN 50 MG TAB PO SCH (08:20)
[2018-10-12] MEDS: CYANOCOBALAMIN 500 MCG TAB PO SCH (08:20)
[2018-10-12] MEDS: OMEPRAZOLE 20 MG CAP PO SCH ×2 (08:20→21:10)
[2018-10-12] MEDS: predniSONE 20 MG TAB PO SCH (08:20)
--- NOTE | 2018-10-12 16:53 | IPNPDOC ---
Text Note Date of Service The patient was seen on 10/12/18. NOTE Subjective: Patient states that her shortness of breath is worsening. She is in her baseline 3 L of oxygen Objective: General:NAD HEENT: PERRLA, EOMI CV: S1S2 Lungs: Diminished lung sounds bilaterally Abdomen: Nontender nondistended Extr: No swelling no cyanosis Neuro: Nonfocal Assessment and plan: Patient is 78 years old female with past medical history of End-stage pulmonary fibrosis, chronic hypoxemic respiratory failure, COPD, bronchiectasis presented to the hospital with increased shortness of breath and weakness. Patient received treatment with steroids and antibiotics. After treatment her breathing improved and she is in her baseline 3 L of oxygen. Continue steroids PO, taper down to her home dose of 7 mg. Await disposition. No family support at home. SNF is an option [address] End stage [address]. Lindsay recommended treatment in the outpatient settings Palliative care consult Child Care Team Lead recommended to discontinue antibiotic 2. Chronic hypoxemic respiratory failure, multifactorial. Continue oxygen therapy. She is on her baseline 3 L of oxygen Continue steroids PO, taper down to her home dose of 7 mg 3. Underlying obstructive lung disease. Continue incentive spirometer and respiratory treatment 4. Bronchiectasis. respiratory treatment 5. Steroid dependence. Continue steroids 6. DNR/DNI status. VS,Fishbone, I+O VS, Fishbone, I+O Vital Signs Date Time Temp Pulse Resp B/P (MAP) Pulse Ox O2 Delivery O2 Flow Rate FiO2 10/12/18 16:00 97.8 74 20 127/71 (89) 98 3.0 10/12/18 14:00 Nasal Cannula I&O- Last 24 Hours up to 6 AM 10/12/18 06:00 Intake Total 960 ml Output Total 850 ml Balance 110 ml RUDY TIJERINA MD Oct 12, 2018 16:53
[2018-10-12] MEDS: amLODIPine 5 MG TAB PO SCH (21:10)
[2018-10-12] MEDS: SPIRONOLACTONE 12.5MG PER 1/2 TABLET PO SCH (21:10)
[2018-10-12] MEDS: MAGNESIUM CHLORIDE 64 MG TABCR (SLO MAG) PO SCH (21:14)
[2018-10-13] VITALS: O2SAT 100
[2018-10-13 01:00] VITALS: O2SAT 99
[2018-10-13 02:00] VITALS: O2SAT 99
[2018-10-13 03:00] VITALS: O2SAT 100
[2018-10-13 04:00] VITALS: BP 137/62; O2SAT 100
[2018-10-13] MEDS: HEPARIN SOD (PORCINE) 5000 UNITS/ML VIAL SC SCH (05:06)
[2018-10-13] MEDS: SLF 3 ML SYR IV SCH (05:06)
[2018-10-13] MEDS: IPRATROPIUM 0.5MG/ALBUTEROL 2.5MG INH SOL UD 3ML (DUONEB)(J7620) NEB SCH ×2 (07:30→11:10)
[2018-10-13] MEDS: ASPIRIN 81 MG ENTERIC TAB PO SCH (09:04)
[2018-10-13] MEDS: CYANOCOBALAMIN 500 MCG TAB PO SCH (09:04)
[2018-10-13] MEDS: VITAMIN D 1,000 INTERNATIONAL UNITS TABLET PO SCH (09:04)
[2018-10-13] MEDS: predniSONE 20 MG TAB PO SCH (09:04)
[2018-10-13] MEDS: OMEPRAZOLE 20 MG CAP PO SCH (09:04)
[2018-10-13] MEDS: SUCRALFATE 1 GM TAB PO SCH ×2 (09:04→11:30)
[2018-10-13 09:05] VITALS: BP 137/62
[2018-10-13] MEDS: LOSARTAN 50 MG TAB PO SCH (09:05)
[2018-10-13] MEDS: METOPROLOL TARTRATE 100 MG TAB PO SCH (09:05)
[2018-10-13] MEDS ORDERED: LORA0.5T11 PO (11:34)
[2018-10-13] MEDS ORDERED: HYOS125TA PO (11:34)
[2018-10-13] MEDS ORDERED: MORP20SO3 PO (11:34)
--- NOTE | 2018-10-13 11:54 | DS.PDOC ---
Discharge Summary General Date of Admission Oct 10, 2018 at 16:45 Date of Discharge Oct 13, 2018 Discharge Summary PROCEDURES PERFORMED DURING STAY: none ADMITTING DIAGNOSES: 1. Acute on Chronic hypoxemic respiratory failure, multifactorial. DISCHARGE DIAGNOSES: 1. Acute on Chronic hypoxemic respiratory failure, multifactorial. 2. End Stage Pulmonary Fibrosis 3. Bronchiectasis COMPLICATIONS/CHIEF COMPLAINT: Pulmonary Fibrosis. HISTORY OF PRESENT ILLNESS: This is a 78-year-old female with a history of COPD and end-stage pulmonary fibrosis. Patient is on home O2 at 3 L and usually would titrate oxygen up to 5 L. if if Saturation falls in the 80s. Patient was having some shortness of breath for the past 1 week with saturation in the 80s and has been titrate oxygen to 5 L but barely make it to the 90s. Today, her saturation dropped to 69% As per daughter and with titration her saturation remained in the 70s with 5 L.. She was then brought to the ER for further evaluation. She received Solu-Medrol and nebulization treatment and right now she is on 3 L nasal cannula and saturation at 95% but still short of breath. Patient was having some chest tightness secondary to the low saturation and shortness of breath. Now, her chest tightness has improved and, pain, or edema, shortness of breath now. We'll admit for acute on chronic respiratory failure and hypoxemia. HOSPITAL COURSE: [address] Lindsay recommended treatment in the outpatient settings Palliative care consult Mandrel Puller recommended to discontinue antibiotic she is being transitioned to hospice house given lack of family/social support 2. Chronic hypoxemic respiratory failure, multifactorial. Continue oxygen therapy. She is on her baseline 3 L of oxygen Continue steroids PO, taper down to her home dose of 7 mg 3. Underlying obstructive lung disease. Continue incentive spirometer and respiratory treatment 4. Bronchiectasis. respiratory treatment 5. Steroid dependence. Continue steroids 6. DNR/DNI status. DISCHARGE MEDICATIONS: Please see below. ALLERGIES: Please see below. PHYSICAL EXAMINATION ON DISCHARGE: VITAL SIGNS: Please see below. GENERAL: NAD RESPIRATORY EXAMINATION: fine crackles bilaterally EXTREMITIES: no c/c/e LABORATORY DATA: Please see below. PROGNOSIS: fair ACTIVITY: As tolerated DIET: As tolerated DISCHARGE PLAN: to hospice DISPOSITION: . DISCHARGE INSTRUCTIONS: 1. to hospice. DISCHARGE CONDITION: guarded TIME SPENT ON DISCHARGE: Greater than 30 minutes. Vital Signs/I&Os Vital Signs Date Time Temp Pulse Resp B/P (MAP) Pulse Ox O2 Delivery O2 Flow Rate FiO2 10/13/18 09:05 3.0 10/13/18 09:05 71 137/62 10/13/18 04:00 100 Nasal Cannula 10/13/18 04:00 98.0 16 I&O- Last 24 Hours up to 6 AM 10/13/18 06:00 Intake Total 1330 ml Balance 1330 ml Microbiology Microbiology 10/07/18 Blood Culture - Final, Complete NO GROWTH AFTER 5 DAYS 10/07/18 Blood Culture - Final, Complete NO GROWTH AFTER 5 DAYS Discharge Medications Scheduled Amlodipine Besylate (Amlodipine Besylate) 5 Mg Tablet, 2.5 MG PO QHS, (Reported) Aspirin (Aspirin EC) 81 Mg Tab, 81 MG PO DAILY, (Reported) Azelastine HCl (Azelastine HCl) 0.1% [place].pump, 1 SPRAY NARES BID, (Reported) Calcium Carbonate/Vitamin D3 (Calcium 600-Vit D3 800 Tablet) 1 Tab Tab, 1 TAB PO DAILY, (Reported) Cyanocobalamin (Vitamin B-12) (Vitamin B-12) 1,000 Mcg Tab, 1,000 MCG PO DAILY, (Reported) Losartan Potassium (Cozaar) 100 Mg Tab, 100 MG PO DAILY, (Reported) Magnesium Chloride (Mag64) 64 Mg Tablet.dr, 128 MG PO QAM, (Reported) Magnesium Chloride (Mag64) 64 Mg Tablet.dr, 64 MG PO QHS, (Reported) Metoprolol Tartrate (Metoprolol Tartrate) 100 Mg Tab, 100 MG PO BID, (Reported) Multivitamins (Thera M Plus Tablet) 1 Each Tablet, 1 TAB PO DAILY, (Reported) Omeprazole (Omeprazole) 20 Mg Cap, 20 MG PO BID, (Reported) Potassium Chloride (Potassium Chloride) 20 Meq Tab, 20 MEQ PO QPM, (Reported) CRUSHED IN APPLESAUCE AFTER DINNER Prednisone (Prednisone) 5 Mg Tab, 7.5 MG PO DAILY, (Reported) Spironolactone (Spironolactone) 25 Mg Tab, 12.5 MG PO QHS, (Reported) Sucralfate (Sucralfate) 1 Gm Tablet, 1 GM PO BID, (Reported) Vitamin D (Vitamin D3) 1,000 Unit Tablet, 1,000 UNITS PO DAILY, (Reported) Scheduled PRN Acetaminophen (Tylenol Arthritis) 650 Mg Tablet.er, 650 MG PO Q8H PRN for PAIN, (Reported) Albuterol Sulf (Albuterol Sulfate) 2.5 Mg/3 Ml Nebu, 1 GAURI INH QID PRN for SOB/WHEEZING, (Reported) SCHEDULED AT 0900, 1500, AND 2100; ADDITIONAL IN EVENING PRN Albuterol Sulfate (Ventolin Hfa) 18 Gm Hfa.aer.ad, 2 PUFF INH Q6H PRN for SHORTNESS OF BREATH, (Reported) Hyoscyamine Sulfate (Hyoscyamine Sulfate) 0.125 Mg Tab.subl, 0.125 MG PO Q4HP PRN for TERMINAL SECRETIONS Use sublingually if unable to swallow Lorazepam (Lorazepam) 0.5 Mg Tablet, 0.5 MG PO Q4HP PRN for ANXIETY/AGITATION Use sublingually if unable to swallow Mometasone Furoate Monohydrate (Nasonex) 17 Gm [place].pump, 1 SPRAY NA DAILY PRN for ALLERGIES, (Reported) Morphine Sulfate (Morphine Sulfate) 100 Mg/5 Ml Solution, 0.25-1 ML PO Q2H PRN for PAIN OR DYSPNEA Use sublingually if unable to swallow Allergies Coded Allergies: hydrochlorothiazide (Verified Allergy, Intermediate, Pancytopenia, 10/07/18) isradipine (Verified Allergy, Mild, edema, 10/07/18) SUNITA Inhibitors (Verified Adverse Reaction, Unknown, Cough, 08/20/18) aspirin (Verified Adverse Reaction, Unknown, Causes platelets to drop, 08/20/18) NAVJOT DWYER MD Oct 13, 2018 11:54
== END 2018-10-13 12:12 | disposition hospice, inpatient (51) | DRG 189 ==
LOC: M ED 22:14 → M ED INP 22:15 → M PCU 10-09 16:13 → OBSVTOIN 10-10 16:45
PROVIDERS: ADMIT Internal Medicine; ATTEND Internal Medicine
DX: J96.22 Acute and chronic respiratory failure with hypercapnia (principal); J44.1 Chronic obstructive pulmonary disease with (acute) exacerbation; J84.10 Pulmonary fibrosis, unspecified; J96.21 Acute and chronic respiratory failure with hypoxia; F41.9 Anxiety disorder, unspecified; E55.9 Vitamin D deficiency, unspecified; I10 Essential (primary) hypertension; K21.9 Gastro-esophageal reflux disease without esophagitis; I73.9 Peripheral vascular disease, unspecified; Z66 Do not resuscitate; Z87.891 Personal history of nicotine dependence; Z79.82 Long term (current) use of aspirin; Z79.52 Long term (current) use of systemic steroids; Z79.899 Other long term (current) drug therapy; Z88.6 Allergy status to analgesic agent; Z88.8 Allergy status to other drugs, medicaments and biological substances; Z99.81 Dependence on supplemental oxygen